=== PATIENT | female | born 1945 | race Caucasian/White ===

== ENCOUNTER 2017-11-22 12:02 | Observation (INO) | payer MEDICARE, OTHER ==
--- NOTE | 2017-11-22 13:19 | RAD ---
CHEST 1 VIEW PORTABLE: HISTORY: A 72-year-old female with a history of chest pain. FINDINGS: Monitor leads overlie the chest. There are some bilateral linear and interstitial parenchymal change s in both lungs including the right mid lung zone and right base and left mid lung zone regions prima rily. Possibilities include that of underlying chronic change versus some acute atypical pneumonia o r pneumonitis. No significant confluent process. Heart size is within the upper range of normal. IMPRESSION: Patchy interstitial and linear parenchymal changes bilaterally, nonspecific, underlying chronic reyes e versus some acute interstitial pneumonitis are felt to be most likely. No confluent pneumonia. Co rrelate clinically. No old studies. Consider short-term followup to include upright PA and lateral c hest whenever the patient can undergo that study. POS: [facility]
[2017-11-22 13:22] LABS: #Eosinphils 0.2 thou/uL (0.0-0.7); #Lymphocytes 1.9 thou/uL (1.20-3.40); #Monocytes 0.3 thou/uL (0.11-0.59); #Neutrophils 3.4 thou/uL (1.40-6.50); %Basophils 0.5 % (0.0-1.0); %Eosinophils 3.7 % (0.0-10.0); %Lymphocytes 33.1 % (21.0-51.0); %Monocytes 5.1 % (0.0-10.0); %Neutrophils 57.6 % (42.0-75.0); Mean Corpuscular HGB CONC 34.8 g/dL (32.0-36.0); Mean Corpuscular Hemoglobin 33.4 pg (27.0-31.0); Mean Corpuscular Volume 96.1 fl (81.0-99.0); Mean Platelet Volume 7.1 fL (7.4-10.4); Platelet Count 215 thou/uL (130-400); RBC Distribution Width 11.4 % (11.5-14.5); Red Blood Cell (RBC) Count 3.59 mill/uL (4.20-5.40); White Blood Cell (WBC) Count 5.8 thou/uL (4.8-10.8)
[2017-11-22 13:45] LABS: ALT (SGPT) 13 U/L (8-55); AST (SGOT) 23 U/L (5-34); Albumin 4.3 g/dL (3.4-4.8); Alkaline Phosphatase 57 U/L (40-150); Anion Gap 12 mmol/L (10-20); BUN (Urea Nitrogen) 13 mg/dL (9.8-20.1); Bilirubin, Total 0.6 mg/dL (0.2-1.2); CK (CPK) 90 U/L (29-168); Calc. Creatinine Clearance 0 mL/min (70-130); Calcium 9.7 mg/dL (7.8-10.44); Carbon Dioxide 24 mmol/L (23-31); Chloride 106 mmol/L (98-107); Estimated GFR-MDRD 76; Globulin 3.5 g/dL (2.4-3.5); Glucose 86 mg/dL (83-110); Potassium 3.9 mmol/L (3.5-5.1); Protein, Total 7.8 g/dL (6.0-8.3); Sodium 138 mmol/L (136-145)
[2017-11-22 13:50] LABS: CKMB 1.3 ng/mL (0-6.6); Troponin I Less than 0.010 ng/mL (< 0.028)
[2017-11-22 17:15] VITALS: BMI 26.3
[2017-11-22 17:31] LABS: Troponin I Less than 0.010 ng/mL (< 0.028)
[2017-11-22 19:42] LABS: Troponin I Less than 0.010 ng/mL (< 0.028)
[2017-11-22] MEDS ORDERED: Ondansetron ODT 4 MG TAB PO PRN (20:37)
[2017-11-22] MEDS ORDERED: Ondansetron HCl/PF 4 MG/2 ML Vial IVP PRN (20:37)
[2017-11-22] MEDS ORDERED: Acetaminophen 500 MG TAB PO PRN (20:37)
[2017-11-22] MEDS ORDERED: ALPRAZolam 0.25 MG TAB PO PRN (20:37)
[2017-11-22] MEDS ORDERED: hydrALAZINE 20 MG/ML VIAL SLOW IVP PRN (20:37)
[2017-11-22] MEDS ORDERED: cloNIDine 0.1 MG TAB PO PRN (20:37)
[2017-11-22] MEDS ORDERED: Ipratropium Bromide 2.5 ml Neb NEB PRN (20:41)
[2017-11-22] MEDS: Famotidine 20 MG TAB PO SCH (21:28)
--- NOTE | 2017-11-23 02:02 | HP ---
DATE OF ADMISSION: 11/22/2017 PRIMARY CARE PHYSICIAN: Ildefonso Jackson MD CHIEF COMPLAINT: Chest pain. HISTORY OF PRESENT ILLNESS: This is a 72-year-old female who initially presented to her [facility] care provider's office, complaining of intermittent chest pain over the last 2-3 months. The p atient states she has recently been diagnosed with a recurrent nodule in the right lung at [facility] in [place], [place] after a previous treatment for left-sided lung cancer with 10 radiation treatments in 08/2016. The patient states on routine CT imaging of the chest. This was noted approx imately 3 days prior to this evaluation. The patient states her physicians at [facility] recommende d cardiac evaluation after she mentioned intermittent chest pain. The patient denies any known coron lopez artery disease and states she underwent cardiac stress testing many years ago and this was interp reted as normal. The patient denies any chronic aspirin therapy, new medications, trauma, injury or change to her activity level. The patient states she normally notices the pain after doing chores at her home causing her to sit down and rest. The patient describes the pain as pressure-like in the c enter of her chest with predilection for this front part of her chest and rib cage. The patient take s intermittent ibuprofen for relief of her symptoms. The patient denies any strong family history of coronary artery disease, recent sick contacts, increased cough, congestion, or fever. The patient p resented to her primary care provider's office undergoing EKG showing questionable T-wave changes in leads V1 and V2. At which point, the patient was referred to the emergency room for evaluation. The patient underwent screening metabolic survey showing negative troponin I and T-wave inversion in thiago ds V1 and V2. The patient received aspirin 324 mg and was referred to the Hospitalist Service for fu rther evaluation. PAST MEDICAL HISTORY: 1. Left-sided lung carcinoma, status post radiation therapy 08/2016. 2. Chronic obstructive pulmonary disease. 3. Former tobacco abuse. 4. Anxiety/depression. PAST SURGICAL HISTORY: 1. Status post cholecystectomy. 2. Status post hysterectomy. CURRENT MEDICATIONS: 1. Xanax 0.25 mg p.o. b.i.d. 2. Spiriva 18 mcg inhaled daily. ALLERGIES: No known drug allergies. FAMILY HISTORY: No inheritable diseases per patient report. SOCIAL HISTORY: Resides in [place], [place]. Retired. Former tobacco use. No alcohol or illicit dr edd use. Accompanied by her daughter in the hospital. Functional of all activities of daily living. REVIEW OF SYSTEMS: The following complete review of systems was negative, unless otherwise mentioned in the HPI or below: Constitutional: Weight loss or gain, ability to conduct usual activities. Sk in: Rash, itching. Eyes: Double vision, pain. ENT/Mouth: Nose bleeding, neck stiffness, pain, te nderness. Cardiovascular: Palpitations, dyspnea on exertion, orthopnea. Respiratory: Shortness of breath, wheezing, cough, hemoptysis, fever or night sweats. Gastrointestinal: Poor appetite, abdom inal pain, heartburn, nausea, vomiting, constipation, or diarrhea. Genitourinary: Urgency, frequenc y, dysuria, nocturia. Musculoskeletal: Pain, swelling. Neurologic/Psychiatric: Anxiety, depressio n. Allergy/Immunologic: Skin rash, bleeding tendency. PHYSICAL EXAMINATION: VITAL SIGNS: On admission, blood pressure 140/70, pulse 60, respiratory rate 18, temperature 97.4 de grees Fahrenheit, O2 saturation 98% on room air. GENERAL APPEARANCE: This is a 72-year-old female, alert and oriented x3, pleasant, convers ant, in no acute distress. HEENT: Pupils are equal, round, and reactive to light and accommodation. Extraocular muscles are in tact. No scleral icterus, no conjunctival injection. Nares patent. OP is clear. Teeth in fair rep air. No oral lesions noted. NECK: Supple. No cervical adenopathy, no thyromegaly, no carotid bruits, no JVD appreciated. Cervi trudy spine with full active and passive range of motion. No meningeal signs appreciated. CHEST: Diminished breath sounds in the bases bilaterally. No rhonchi, wheezing, or crackles. CARDIOVASCULAR: S1, S2 with distant heart sounds. No murmur, rub, or gallop detected. ABDOMEN: Rounded, soft, nontender, nondistended. Bowel sounds are positive in all four quadrants. There is no hepatosplenomegaly, no abdominal bruits, no rebound or guarding appreciated. EXTREMITIES: Warm and dry with fair turgor. No clubbing, cyanosis, or asymmetric edema appreciated. Pulses palpable distally at the dorsalis pedis, posterior tibial, and popliteal arteries bilaterall y. Capillary refill less than 2 seconds. MUSCULOSKELETAL: Positive tenderness to palpation in the lower third of the sternum and costochondra l margin bilaterally. NEUROLOGIC: Cranial nerves II through XII are grossly intact. No focal or lateralizing signs apprec iated. PERTINENT LABORATORY AND X-RAY FINDINGS: A complete metabolic profile within normal limits. Troponi n I negative x3. CBC within normal limits. Portable chest x-ray dated 11/22/2017, showed chronic ch anges in bilateral lung mike with patchy interstitial markings. No acute infiltrate identified. E KG dated 11/22/2017, by my interpretation shows sinus bradycardia with heart rates in the 50s. Denise l R-wave progression noted in the precordial leads. Normal axis. T-wave inversion in leads V1 and V 2. ASSESSMENT AND PLAN: 1. Chest pain. The patient will be observed on the telemetry unit. We will proceed with exercise C ardiolite stress testing in the a.m. Check fasting lipid profile. Continue aspirin 325 mg p.o. cecil y. 2. Chronic obstructive pulmonary disease. Stable currently. No evidence of exacerbation. Resume h ome Spiriva 18 mcg daily. 3. Lung carcinoma, status post radiation therapy in 2017. Current workup involving neoplastic proce ss of the right lung field. 4. Anxiety. Continue Xanax 0.25 mg p.o. b.i.d. 5. Prophylaxis. Sequential compression devices while in bed. Pepcid 20 mg p.o. b.i.d. 6. Code status is FULL. Surrogate medical decision maker is the patient's daughter.
[2017-11-23 04:58] LABS: Eosinophils 7 % (0-10); Hemoglobin 11.6 g/dL (12.0-16.0); Lymphocytes 34 % (21-51); MDiff Complete? YES; Mean Corpuscular HGB CONC 34.8 g/dL (32.0-36.0); Mean Corpuscular Hemoglobin 33.9 pg (27.0-31.0); Mean Corpuscular Volume 97.2 fl (81.0-99.0); Monocytes 2 % (0-10); Neutrophil 55 % (42-75); PLT Morphology Comment Appears Adequate; Platelet Count 206 thou/uL (130-400); RBC Distribution Width 11.4 % (11.5-14.5); Red Blood Cell (RBC) Count 3.44 mill/uL (4.20-5.40); White Blood Cell (WBC) Count 5.7 thou/uL (4.8-10.8)
[2017-11-23 04:59] LABS: Anion Gap 8 mmol/L (10-20); BUN (Urea Nitrogen) 14 mg/dL (9.8-20.1); Calc. Creatinine Clearance 72 mL/min (70-130); Calcium 9.6 mg/dL (7.8-10.44); Carbon Dioxide 26 mmol/L (23-31); Cardiac Risk 4.1 (Less than 4.5); Chloride 108 mmol/L (98-107); Cholesterol 177 mg/dl (< 200 Desired); Estimated GFR-MDRD 81; Glucose 91 mg/dL (83-110); HDL Cholesterol 43 mg/dL (>60 Neg Risk); LDL Cholesterol, Calculated 111 mg/dL; Potassium 3.8 mmol/L (3.5-5.1); Sodium 138 mmol/L (136-145); Triglycerides 115 mg/dL (Less than 150)
[2017-11-23] MEDS ORDERED: Aspirin 325 MG TAB PO SCH (09:00)
[2017-11-23] MEDS ORDERED: Spiriva 18 MCG CAP (Box of 5 Caps) INH SCH (09:00)
[2017-11-23 12:10] VITALS: BP 145/67; TEMP 97.3
[2017-11-23] MEDS: Famotidine 20 MG TAB PO SCH (13:13)
--- NOTE | 2017-11-23 13:34 | DIS ---
DATE OF ADMISSION: 11/22/2017 DATE OF DISCHARGE: 11/23/2017 DISCHARGE DIAGNOSES: 1. Chest pain, non-cardiac. 2. Chronic obstructive pulmonary disease without exacerbation, stable. 3. Lung carcinoma, status post radiation therapy in 2017. 4. Anxiety, stable. CONSULTATIONS: None. PERTINENT LABORATORY AND X-RAY FINDINGS: Complete metabolic profile within normal limits. Total cho lesterol 177, triglycerides 115, HDL 43, LDL 111. Troponin negative x3. CBC showed a white blood ce ll count of 5.7, hemoglobin 12, hematocrit 33, platelet count 206. Portable chest x-ray dated 2017 showed chronic changes in bilateral lung mike. Cardiolite stress test dated 11/23/2017 showed no evidence for reversible or fixed ischemia with calculated ejection fraction of 71%. HOSPITAL COURSE: The patient was observed on the telemetry unit after initially presenting with ches t pain with questionable EKG changes. The patient underwent serial cardiac enzymes which were negati ve x3. The patient proceeded to exercise Cardiolite stress testing using Lexiscan protocol showing n o evidence of reversible or fixed ischemia with calculated ejection fraction 71%. Telemetry monitori ng showed a sinus mechanism without evidence of acute arrhythmia or dysrhythmia. Screening metabolic survey was negative. The patient overall remained clinically stable throughout the hospital course and likely is chest pain related to musculoskeletal origin. I have examined the patient at the time of discharge and discussed current radiologic studies, stress test results and metabolic survey at wh ich point the patient verbalized understanding and agreement. The patient is overall clinically stab le and ready for discharge on 11/23/2017. DISCHARGE MEDICATIONS: 1. Xanax 0.25 mg p.o. b.i.d. 2. Spiriva HandiHaler 18 mcg inhaled daily. FOLLOWUP: The patient may follow up with Dr. Ildefonso Jackson within 7 days of discharge. CONDITION ON DISCHARGE: Stable. ACTIVITY: ad av. DIET: Regular. CODE STATUS: Full. DISPOSITION: Home on 11/23/2017.
--- NOTE | 2017-11-23 13:56 | NM ---
MYOCARDIAL PERFUSION EVALUATION. INDICATIONS: Asthma with moderate to severe COPD and chest pain. RADIOPHARMACEUTICAL: Technetium 99m sestamibi 32 millicuries IV with stress. Technetium 99m sestamibi 10.8 millicuries with rest. FINDINGS: When comparing the stress and rest images, no reversible myocardial perfusion defect is evident. The re is normal wall motion and thickening. Estimated LVEF is 71%. IMPRESSION: Normal myocardial perfusion evaluation. POS: [facility]
[2017-11-23] MEDS ORDERED: Regadenoson 0.4 MG/5 ML SYRINGE ONE (15:42)
== END 2017-11-23 13:59 | disposition home or self-care (01) ==
LOC: ERS 12:02 → 2SW 14:27
PROVIDERS: ADMIT Family Medicine; ATTEND Family Medicine
DX: R07.89 Other chest pain (principal); J44.9 Chronic obstructive pulmonary disease, unspecified; F41.9 Anxiety disorder, unspecified; F32.9 Major depressive disorder, single episode, unspecified; Z79.899 Other long term (current) drug therapy; Z90.49 Acquired absence of other specified parts of digestive tract; Z90.710 Acquired absence of both cervix and uterus; Z85.118 Personal history of other malignant neoplasm of bronchus and lung; Z92.3 Personal history of irradiation; Z87.891 Personal history of nicotine dependence
CPT/HCPCS: 71045; 78452; 80048; 80053; 80061; 82550; 82553; 84484 ×2; 85007; 85025; 85027; 93005; 93017; 99285; A9500; G0378; 36415; J2785

== ENCOUNTER 2018-02-22 12:26 | Emergency (ER) | payer MEDICARE ==
[2018-02-22 13:08] LABS: Hemoglobin 12.4 g/dL (12.0-16.0); Mean Corpuscular HGB CONC 35.1 g/dL (32.0-36.0); Mean Corpuscular Hemoglobin 33.7 pg (27.0-31.0); Mean Corpuscular Volume 96.2 fL (78.0-98.0); Mean Platelet Volume 7.3 fL (7.4-10.4); Platelet Count 130 thou/uL (130-400); RBC Distribution Width 11.3 % (11.5-14.5); Red Blood Cell (RBC) Count 3.67 mill/uL (4.20-5.40); White Blood Cell (WBC) Count 3.5 thou/uL (4.8-10.8)
[2018-02-22 13:22] LABS: ALT (SGPT) 10 U/L (8-55); AST (SGOT) 13 U/L (5-34); Albumin 4.1 g/dL (3.4-4.8); Alkaline Phosphatase 81 U/L (40-150); Anion Gap 10 mmol/L (10-20); BUN (Urea Nitrogen) 22 mg/dL (9.8-20.1); Bilirubin, Total 1.4 mg/dL (0.2-1.2); Calc. Creatinine Clearance 0 mL/min (70-130); Calcium 9.7 mg/dL (7.8-10.44); Carbon Dioxide 27 mmol/L (23-31); Chloride 102 mmol/L (98-107); Estimated GFR-MDRD 71; Glucose 123 mg/dL (83-110); Potassium 3.8 mmol/L (3.5-5.1); Protein, Total 7.1 g/dL (6.0-8.3); Sodium 135 mmol/L (136-145)
[2018-02-22 13:44] LABS: Band 6 % (5-11); Eosinophils 1 % (0-10); Lymphocytes 32 % (21-51); MDiff Complete? YES; Monocytes 4 % (0-10); Neutrophil 57 % (42-75); PLT Morphology Comment Appears Adequate
[2018-02-22 13:50] LABS: Magnesium 2.5 mg/dL (1.6-2.6)
[2018-02-22 13:54] LABS: CKMB 0.4 ng/mL (0-6.6); Troponin I Less than 0.010 ng/mL (< 0.028)
--- NOTE | 2018-02-22 14:07 | RAD ---
CHEST 1 VIEW: Date: 02/22/18 HISTORY: Altered mental status. Chest pain. COMPARISON: Chest radiograph dated 11/22/17. FINDINGS: Heart size is enlarged. There is scarring in the lingula and left lower lobe. Small scarring right lo wer lobe. No pneumothorax. Peripheral scar is present right upper lobe. No acute osseous abnormality. Right upper quadrant surgical clips. IMPRESSION: Chronic changes. No acute intrathoracic abnormality. POS: [facility]
[2018-02-22 14:35] LABS: Bilirubin Negative (Negative); Blood, Urine Small (Negative); Clarity CLOUDY (Clear); Glucose, Urine (Dipstick) Negative (Negative); Leukocyte Large (Negative); Nitrite Negative (Negative); Protein, Urine (Dipstick) Negative (Neg-Trace); Specific Gravity, Urine 1.009 (1.002-1.036); Urobilinogen 0.2 mg/dL (0.2-1.0)
[2018-02-22 14:37] LABS: Bacteria/HPF 4+ HPF (None Seen); Hyaline Casts/LPF 0-3 HYALINE CAST LPF (0-3 Hyaline); RBC/HPF 0-3 HPF (0-3); Squamous Epithelial 0-3 HPF (0-3)
[2018-02-22] MEDS ORDERED: cefTRIAXone\\ROCEPHIN 2 GM VIAL ONE (15:08)
== END 2018-02-22 16:31 | disposition home or self-care (01) ==
LOC: ERS 12:26
DX: N39.0 Urinary tract infection, site not specified (principal); R53.1 Weakness; J44.9 Chronic obstructive pulmonary disease, unspecified; F32.9 Major depressive disorder, single episode, unspecified; Z87.891 Personal history of nicotine dependence
CPT/HCPCS: 71045; 80053; 81003; 81015; 82553; 83735; 84484; 85025; 87077; 87086; 87186; 93005; 96365; J0696

== ENCOUNTER 2018-04-04 11:54 | Emergency (ER) | payer MEDICARE ==
[2018-04-04 13:23] LABS: Hemoglobin 10.9 g/dL (12.0-16.0); Mean Corpuscular HGB CONC 35.2 g/dL (32.0-36.0); Mean Corpuscular Hemoglobin 34.8 pg (27.0-31.0); Mean Corpuscular Volume 98.8 fL (78.0-98.0); Mean Platelet Volume 6.7 fL (7.4-10.4); Platelet Count 320 thou/uL (130-400); Red Blood Cell (RBC) Count 3.15 mill/uL (4.20-5.40); White Blood Cell (WBC) Count 31.5 thou/uL (4.8-10.8)
[2018-04-04 13:39] LABS: ALT (SGPT) 8 U/L (8-55); AST (SGOT) 16 U/L (5-34); Alkaline Phosphatase 131 U/L (40-150); Anion Gap 12 mmol/L (10-20); BUN (Urea Nitrogen) 30 mg/dL (9.8-20.1); Bilirubin, Total 1.4 mg/dL (0.2-1.2); Calc. Creatinine Clearance 0 mL/min (70-130); Calcium 9.4 mg/dL (7.8-10.44); Carbon Dioxide 23 mmol/L (23-31); Chloride 102 mmol/L (98-107); Estimated GFR-MDRD 81; Globulin 3.1 g/dL (2.4-3.5); Glucose 106 mg/dL (83-110); Potassium 4.3 mmol/L (3.5-5.1); Protein, Total 7.1 g/dL (6.0-8.3); Sodium 133 mmol/L (136-145)
[2018-04-04 13:42] LABS: Band 17 % (5-11); Lymphocytes 1 % (21-51); MDiff Complete? YES; Monocytes 2 % (0-10); Neutrophil 80 % (42-75); PLT Morphology Comment Appears Adequate; Toxic Granulation SLIGHT
--- NOTE | 2018-04-04 13:58 | RAD ---
CHEST 1 VIEW: Date: 04/04/18 HISTORY: Chest pain. COMPARISON: Chest radiograph dated 02/22/18. FINDINGS: Chronic interstitial markings in the lung bases, likely scarring. No pneumothorax. Heart size mildly enlarged. No acute osseous abnormality. Right upper quadrant surgical clips. IMPRESSION: Chronic changes. No acute intrathoracic abnormality. POS: [facility]
[2018-04-04 15:00] LABS: Bilirubin Negative (Negative); Blood, Urine Trace (Negative); Clarity CLOUDY (Clear); Glucose, Urine (Dipstick) Negative (Negative); Leukocyte Moderate (Negative); Nitrite Positive (Negative); Protein, Urine (Dipstick) Negative (Neg-Trace); Specific Gravity, Urine 1.014 (1.002-1.036)
[2018-04-04 15:02] LABS: Bacteria/HPF 4+ HPF (None Seen); Hyaline Casts/LPF 4-6 HYALINE CAST LPF (0-3 Hyaline); Pathc Cast-AUWi Flag 0.43 (0-2.49); Squamous Epithelial 0-3 HPF (0-3)
[2018-04-04] MEDS ORDERED: cefTRIAXone\\ROCEPHIN 1 GM VIAL ONE (15:51)
== END 2018-04-04 17:40 | disposition home or self-care (01) ==
LOC: ERS 11:54
DX: N39.0 Urinary tract infection, site not specified (principal); E86.0 Dehydration; J44.9 Chronic obstructive pulmonary disease, unspecified; F32.9 Major depressive disorder, single episode, unspecified; F17.210 Nicotine dependence, cigarettes, uncomplicated
CPT/HCPCS: 36415; 71045; 80053; 81003; 81015; 83605; 85025; 87040; 87077; 87086; 87186; 96361; 96365; J0696

== ENCOUNTER 2018-07-23 10:52 | Observation (INO) | payer MEDICARE ==
[2018-07-23] MEDS ORDERED: Ondansetron PF 4 MG/2 ML Vial ONE (11:43)
[2018-07-23 12:14] LABS: #Eosinphils 0.1 thou/uL (0.0-0.7); #Lymphocytes 1.2 thou/uL (1.20-3.40); #Monocytes 0.4 thou/uL (0.11-0.59); #Neutrophils 4.4 thou/uL (1.40-6.50); %Basophils 0.6 % (0.0-1.0); %Eosinophils 1.3 % (0.0-10.0); %Lymphocytes 19.7 % (21.0-51.0); %Neutrophils 71.4 % (42.0-75.0); Hemoglobin 10.8 g/dL (12.0-16.0); Mean Corpuscular Hemoglobin 31.2 pg (27.0-31.0); Mean Corpuscular Volume 94.4 fL (78.0-98.0); Mean Platelet Volume 7.3 fL (7.4-10.4); Platelet Count 271 thou/uL (130-400); RBC Distribution Width 11.4 % (11.5-14.5); Red Blood Cell (RBC) Count 3.46 mill/uL (4.20-5.40); White Blood Cell (WBC) Count 6.2 thou/uL (4.8-10.8)
[2018-07-23 12:29] LABS: ALT (SGPT) Less than 7 U/L (8-55); AST (SGOT) 18 U/L (5-34); Alkaline Phosphatase 41 U/L (40-150); Anion Gap 12 mmol/L (10-20); BUN (Urea Nitrogen) 12 mg/dL (9.8-20.1); Bilirubin, Total 0.9 mg/dL (0.2-1.2); Calc. Creatinine Clearance 0 mL/min (70-130); Carbon Dioxide 23 mmol/L (23-31); Chloride 100 mmol/L (98-107); Estimated GFR-MDRD 69; Globulin 3.5 g/dL (2.4-3.5); Glucose 106 mg/dL (83-110); Lipase 36 U/L (8-78); Potassium 4.1 mmol/L (3.5-5.1); Protein, Total 7.5 g/dL (6.0-8.3); Sodium 131 mmol/L (136-145)
[2018-07-23 13:18] LABS: Bilirubin Negative (Negative); Blood, Urine Negative (Negative); Clarity CLEAR (Clear); Glucose, Urine (Dipstick) Negative (Negative); Leukocyte Small (Negative); Nitrite Negative (Negative); Protein, Urine (Dipstick) Negative (Neg-Trace); Specific Gravity, Urine 1.017 (1.002-1.036); Urobilinogen 0.2 mg/dL (0.2-1.0); pH, Urine 5.5 (5.0-9.0)
[2018-07-23 13:20] LABS: Pathc Cast-AUWi Flag 2.32 (0-2.49)
--- NOTE | 2018-07-23 13:25 | CT ---
CT ABDOMEN AND PELVIS WITH IV CONTRAST: Date: 07/23/18 HISTORY: Abdominal pain. Lung cancer. COPD. Nausea and vomiting. Frequent UTIs. FINDINGS: There are no previous exams for comparison. There are atherosclerotic changes in the visualized lung mike. The patient is post cholecystectomy. A tiny, nonobstructing right renal calculus is present. There is a small cyst in the superior pole o f the right kidney. The liver demonstrates decreased attenuation compared to the spleen consistent wi th fatty infiltration. The pancreas, adrenal glands, and left kidney are unremarkable. A circumaortic left renal vein is present. A tiny low density lesion in the left lobe of the liver is likely a cyst and was seen on the CT scan of chest dated 11/23/10 from [facility]. No free air, free fluid, or lymphadenopathy is seen. There are vascular calcifications without eviden ce of aneurysmal dilatation of the abdominal aorta. The small bowel loops are not abnormally dilated. There are degenerative changes in the spine. IMPRESSION: No acute process. POS: [facility]
[2018-07-23 13:45] LABS: RBC/HPF None Seen HPF (0-3); Squamous Epithelial 0-3 HPF (0-3)
[2018-07-23 13:47] LABS: Bacteria/HPF None Seen HPF (None Seen); Hyaline Casts/LPF NONE SEEN LPF (0-3 Hyaline)
[2018-07-23] MEDS ORDERED: cefTRIAXone\\ROCEPHIN 1 GM VIAL ONE (14:25)
[2018-07-23] MEDS ORDERED: Sodium Chloride 0.9% 100 ML ONE (14:25)
[2018-07-23] MEDS ORDERED: Ondansetron PF 4 MG/2 ML Vial IVP PRN (16:22)
[2018-07-23] MEDS ORDERED: Ondansetron ODT 4 MG TAB PO PRN (16:22)
[2018-07-23 16:55] VITALS: BMI 22.1
[2018-07-23] MEDS: Sodium Chloride 0.9% 1,000 ML IV SCH (17:51)
[2018-07-23] MEDS: Famotidine 20 MG TAB PO SCH (20:24)
[2018-07-23] MEDS ORDERED: Sodium Chloride 0.9% 250 ML 250 ML IVPB SCH (21:45)
[2018-07-23] MEDS ORDERED: Sodium Chloride 0.9% 250 ML IV SCH (21:45)
--- NOTE | 2018-07-23 23:05 | HP ---
PRIMARY CARE PHYSICIAN: Dr. Ramirez. CHIEF COMPLAINT: Vomiting. HISTORY OF PRESENT ILLNESS: Ms. 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 Last treatment was in June. Reports that she has been to [facility] within the last 2 weeks and had a torso and brain CT, which was clean. Daughter reports that she called to check on her today and went over to her house and noticed that there were several bouts of bile. This concerned her and she brought her to the emergency room. The patient denies any abdominal pain and denies any current nausea after she was given some IV fluids, Rocephin and Zofran in the emergency room. The patient did have a CT of the abdomen and pelvis while she was in the ER, it showed no acute process. Daughter reports that she is worried about her because she has not been eating. The patient reports that her taste buds are not the same after her chemotherapy and radiation, nothing tastes good, and she has been drinking Dr Pepper and water, but has eaten very little in the last few days and then vomiting started 3 days ago, reports vomited 3 times 2 days ago, yesterday once or twice, and then today once or twice. Reports she is currently on cefdinir for a sinus infection. Does have a past medical history of COPD and is on twice a day. While in the emergency room, she had some leukocyte esterase and some white blood cells in her urine and was treated with Rocephin IV piggyback. It was sent off for culture. Based on history and not being able to keep anything down, she was admitted to the observation unit for further management. PAST MEDICAL HISTORY: Includes small cell lung cancer, which is currently in remission and COPD. PAST SURGICAL HISTORY: Includes cholecystectomy, hysterectomy, and several biopsies of her lungs. PSYCHIATRIC HISTORY: Does have a history of depression. SOCIAL HISTORY: Former tobacco user, smokes cigarettes. She quit smoking less than 10 years ago. Denies any alcohol or drug use. ALLERGIES: INCLUDE CODEINE. CURRENT MEDICATIONS: Include; 1. Cefdinir 300 mg two times a day. 2. two puffs once a day. REVIEW OF SYSTEMS: The patient reports generalized weakness and deconditioning. Reported some nausea and vomiting for the last 3 days, currently reports improvement. States oral intake has been significantly decreased within last 4 to 5 days. All other review of systems have been reviewed and negative unless mentioned in the HPI. PHYSICAL EXAMINATION: VITAL SIGNS: Blood pressure 108/68, pulse is 60, respirations 22, temperature is 98.4, and pulse ox is 99% on room air. CONSTITUTIONAL: The patient is in no acute distress. She is alert, oriented to person, place, and time. HEAD: Atraumatic, normocephalic. EYES: Eyelids normal to inspection. Pupils are equally round and reactive to light. Extraocular muscles are intact. ENT: Mucous membranes are dry. Teeth are normal. Denies sinus tenderness on palpation. NECK: Trachea is midline. No cervical adenopathy. No tenderness. Full range of motion. RESPIRATORY/CHEST: Breath sounds are clear. CARDIOVASCULAR: Regular rate and rhythm. S1, S2. Heart sounds are normal. ABDOMEN: Female, nontender on palpation. Bowel sounds are heard. No peritoneal signs. BACK: Normal to inspection. Normal range of motion. No tenderness. EXTREMITIES: Upper extremities, normal range of motion. Motor strength is normal. Sensation is intact. Radial pulses are equal bilaterally. Lower extremities; normal to inspection. Normal range of motion. Motor strength is normal. Sensation is intact bilaterally. Pedal pulses are equal bilaterally. NEUROLOGIC: Cranial nerves are intact. No focal, motor, or sensory deficits. Speech is normal. The patient is oriented to person, place, and time. SKIN: Warm, dry, normal in color. PSYCHIATRIC: The patient has a flat affect. IMAGING STUDIES: EKG interpretation in the ER, normal sinus rhythm, beats per minute were 63, no ectopics. Conduction is normal. ST segments are normal. PERTINENT LABORATORY DATA: White blood cell count is 6.2, hemoglobin is 10.8, hematocrit is 32.6, and platelet count is 271. Sodium was 131, creatinine 0.82, estimated GFR 69, BUN is 12, glucose is 106. AST 18, ALT less than 7, and alkaline phosphatase is 41. Troponin I is undetectable. Other liver enzymes are unremarkable. Lipase is 36. Urine positive for leukocyte esterase and white blood cell count of 4 to 6. ASSESSMENT AND PLAN: 1. Nausea and vomiting. We will gently hydrate, offer IV fluids. We will check labs in the morning. 2. Deconditioning, decreased appetite. We will offer meal supplementation, high-protein boost or other similar supplements. We will ask dietitian's further input. 3. Urinary tract infection. We will continue the Rocephin IV piggyback. 4. Chronic obstructive pulmonary disease. We will continue her home medications. 5. Deep venous thrombosis and gastrointestinal prophylaxis will be started. 6. Hospital course will depend on clinical findings. Job ID: [id number]
[2018-07-23] MEDS ORDERED: Sodium Chloride 0.9% 250 ML 250 ML IV SCH (23:45)
[2018-07-24] MEDS ORDERED: Sodium Chloride 0.9% 250 ML IV SCH (00:15)
[2018-07-24] MEDS: Sodium Chloride 0.9% 1,000 ML IV SCH ×3 (01:25→17:41)
[2018-07-24 04:59] LABS: #Eosinphils 0.2 thou/uL (0.0-0.7); #Monocytes 0.3 thou/uL (0.11-0.59); #Neutrophils 3.3 thou/uL (1.40-6.50); %Basophils 0.1 % (0.0-1.0); %Eosinophils 3.8 % (0.0-10.0); %Lymphocytes 21.5 % (21.0-51.0); %Monocytes 5.6 % (0.0-10.0); %Neutrophils 68.9 % (42.0-75.0); Hemoglobin 9.3 g/dL (12.0-16.0); Mean Corpuscular HGB CONC 34.7 g/dL (32.0-36.0); Mean Corpuscular Hemoglobin 33.1 pg (27.0-31.0); Mean Corpuscular Volume 95.3 fL (78.0-98.0); Mean Platelet Volume 6.8 fL (7.4-10.4); Platelet Count 217 thou/uL (130-400); RBC Distribution Width 11.5 % (11.5-14.5); White Blood Cell (WBC) Count 4.8 thou/uL (4.8-10.8)
[2018-07-24 05:21] LABS: ALT (SGPT) Less than 7 U/L (8-55); AST (SGOT) 14 U/L (5-34); Albumin 3.1 g/dL (3.4-4.8); Alkaline Phosphatase 33 U/L (40-150); Anion Gap 7 mmol/L (10-20); BUN (Urea Nitrogen) 11 mg/dL (9.8-20.1); Bilirubin, Total 0.5 mg/dL (0.2-1.2); Calc. Creatinine Clearance 69 mL/min (70-130); Calcium 8.5 mg/dL (7.8-10.44); Carbon Dioxide 25 mmol/L (23-31); Chloride 105 mmol/L (98-107); Estimated GFR-MDRD 88; Globulin 2.6 g/dL (2.4-3.5); Glucose 93 mg/dL (83-110); Potassium 3.8 mmol/L (3.5-5.1); Protein, Total 5.7 g/dL (6.0-8.3); Sodium 133 mmol/L (136-145)
[2018-07-24] MEDS: Famotidine 20 MG TAB PO SCH ×2 (10:24→20:50)
[2018-07-24] MEDS: Enoxaparin Sodium 30 MG/0.3 ML SYRINGE SC SCH (10:24)
[2018-07-24] MEDS ORDERED: Sodium Chloride 0.9% 500 ML IV SCH (12:45)
--- NOTE | 2018-07-24 14:15 | EKG ---
Test Reason : VOMITING Blood Pressure : / mmHG Vent. Rate : 063 BPM Atrial Rate : 063 BPM P-R Int : 158 ms QRS Dur : 090 ms QT Int : 404 ms P-R-T Axes : 061 -22 022 degrees QTc Int : 413 ms Normal sinus rhythm T wave abnormality, consider anterolateral ischemia Abnormal ECG Confirmed by JV MCCLENDON DO ([id number]), story editor JASMINE GIVENS ([id number]) on 07/24/2018 2:14:48 PM Referred By: Confirmed By:JV MCCLENDON DO
[2018-07-24] MEDS: cefTRIAXone\\ROCEPHIN 1 GM in Sodium Chloride 0.9% 100 ML IVPB SCH (15:12)
--- NOTE | 2018-07-24 15:33 | PDOC.PN ---
- Subjective Encounter Start Date: 07/24/18 Encounter Start Time: 09:30 Subjective: Denies n/v in the last 24 hours -: Denies abdominal pain, reports she has been eating "a little" -: Reports grief over of in February - Objective Vital Signs & Weight: Vital Signs (12 hours) Temp Pulse Resp BP BP Pulse Ox 07/24/18 13:30 79 16 86/52 L 07/24/18 11:41 98.4 F 76 16 86/52 L 93 L 07/24/18 07:50 98.3 F 64 18 94/54 L 94 L 07/24/18 04:00 99.1 F 63 20 92/53 L 93 L Weight Admit Weight 56.88 kg Weight 56.88 kg I&O: 07/23/18 07/24/18 07/25/18 06:59 06:59 06:59 Intake Total 3357 1278 Output Total 500 500 Balance 2856 778 Result Diagrams: 07/24/18 04:33 07/24/18 04:33 Phys Exam - Physical Examination HEENT: PERRLA, moist MMs Neck: no nodes, no JVD Respiratory: no wheezing, clear to auscultation bilateral Cardiovascular: RRR, no significant murmur Gastrointestinal: soft, non-tender Musculoskeletal: no edema, pulses present Neurological: non-focal, normal sensation Lymphatic: no nodes Deviation from normal: flat affect Skin: no rash, normal turgor Dx/Plan (1) Hypotension Status: Acute (2) Nausea & vomiting Code(s): R11.2 - NAUSEA WITH VOMITING, UNSPECIFIED Status: Acute (3) UTI (urinary tract infection) Status: Acute - Plan cont current plan of care, continue antibiotics, DVT proph w/lovenox -: CM consulted for possible home health -: Nutrition recommended supplements TID -: Unable to walk very far, feels weak, PT ordered -: Will monitor VS and labs * .
[2018-07-24] MEDS ORDERED: Megestrol Acetate 40 MG TAB PO SCH (21:00)
[2018-07-24] MEDS: Megestrol Acetate 800 MG/20 ML UDCUP PO SCH (21:07)
[2018-07-24] MEDS ORDERED: Acetaminophen 325 MG TAB PO PRN (22:16)
[2018-07-25] MEDS: Sodium Chloride 0.9% 1,000 ML IV SCH ×2 (01:51→10:44)
[2018-07-25] MEDS ORDERED: Sodium Chloride 0.9% 250 ML 250 ML IVPB SCH (03:15)
[2018-07-25] MEDS ORDERED: Sodium Chloride 0.9% 250 ML IVPB SCH (03:30)
[2018-07-25 06:23] LABS: #Eosinphils 0.2 thou/uL (0.0-0.7); #Lymphocytes 1.1 thou/uL (1.20-3.40); #Monocytes 0.3 thou/uL (0.11-0.59); #Neutrophils 2.6 thou/uL (1.40-6.50); %Basophils 0.5 % (0.0-1.0); %Eosinophils 4.2 % (0.0-10.0); %Lymphocytes 25.4 % (21.0-51.0); %Monocytes 7.9 % (0.0-10.0); Hemoglobin 9.5 g/dL (12.0-16.0); Mean Corpuscular HGB CONC 34.6 g/dL (32.0-36.0); Mean Corpuscular Volume 95.5 fL (78.0-98.0); Mean Platelet Volume 6.8 fL (7.4-10.4); Platelet Count 216 thou/uL (130-400); RBC Distribution Width 11.5 % (11.5-14.5); Red Blood Cell (RBC) Count 2.86 mill/uL (4.20-5.40); White Blood Cell (WBC) Count 4.2 thou/uL (4.8-10.8)
[2018-07-25 06:44] LABS: ALT (SGPT) Less than 7 U/L (8-55); AST (SGOT) 12 U/L (5-34); Albumin 3.1 g/dL (3.4-4.8); Alkaline Phosphatase 32 U/L (40-150); Anion Gap 9 mmol/L (10-20); BUN (Urea Nitrogen) 6 mg/dL (9.8-20.1); Bilirubin, Total 0.4 mg/dL (0.2-1.2); Calc. Creatinine Clearance 75 mL/min (70-130); Calcium 8.6 mg/dL (7.8-10.44); Carbon Dioxide 22 mmol/L (23-31); Chloride 112 mmol/L (98-107); Estimated GFR-MDRD Greater than 90; Globulin 2.7 g/dL (2.4-3.5); Glucose 111 mg/dL (83-110); Potassium 3.7 mmol/L (3.5-5.1); Protein, Total 5.8 g/dL (6.0-8.3); Sodium 139 mmol/L (136-145)
[2018-07-25] MEDS: Enoxaparin Sodium 30 MG/0.3 ML SYRINGE SC SCH (09:44)
[2018-07-25] MEDS: Megestrol Acetate 800 MG/20 ML UDCUP PO SCH (09:45)
[2018-07-25] MEDS: Famotidine 20 MG TAB PO SCH (09:45)
[2018-07-25] MEDS: cefTRIAXone\\ROCEPHIN 1 GM in Sodium Chloride 0.9% 100 ML IVPB SCH (14:46)
[2018-07-25 15:47] VITALS: BP 107/57; TEMP 99.2
--- NOTE | 2018-07-26 13:22 | DIS ---
DATE OF ADMISSION: 07/23/2018 DATE OF DISCHARGE: 07/25/2018 PRIMARY CARE PHYSICIAN: Dr. Ramirez. CONSULTANTS: None. PROCEDURE: The patient had an abdomen and pelvis CT that showed no acute process. HOSPITAL COURSE: The patient was admitted on 07/23/2018 for nausea, vomiting, evidence of possible UTI in her urine specimen, deconditioning, decreased appetite, nausea, vomiting for the last week. Daughter reported that she had not eaten much in the last week. The patient does have a recent history of small cell lung cancer, which had been treated with radiation and chemo. Her last treatment was in June, reports that [facility] in last 2 weeks and had [address]s, which were clean. Daughter went to check on the patient on day of admission, noticed that she had vomited several times, grew concerned with her vomiting and generalized weakness and brought her to the emergency room for further evaluation. While patient has been admitted, she has received Rocephin IV piggyback, fluids, we added Megace and some Zoloft to her medication regimen. We asked for Palliative Care to consult for assistance with goals of care and to help with any family issues they might be dealing with as the patient's in February and then subsequently, she was diagnosed with cancer and has been undergoing treatment. A significant component of grieving, and has not been able to process while she has been undergoing her own health crisis. Was amenable to starting some antidepressant therapy and we will have her follow up with her primary care physician Dr. Ramirez, who started her on a low dose and she may need an increased dose. We will need to monitor her sodium as it was on the lower side of normal while in the hospital. The patient's vital signs improved, blood pressure morning of admission 107/57. The patient's physical stamina has improved. On day of admission, she was unable to walk very far without assistance. Today, on the day of discharge, she was walking up and down the halls without assistance. Generally feels better today. Reports that she wants to get discharged pancakes, which is the first time she has expressed interest in eating since she has been here. Subsequently, the patient will be discharged to home with close followup with Dr. Ramirez. DISCHARGE DIAGNOSES: 1. Nausea and vomiting, resolved. 2. Urinary tract infection, resolved. 3. Deconditioning, improved. 4. Chronic obstructive pulmonary disease. 5. Decreased appetite. 6. Melancholy - grieving. REVIEW OF SYSTEMS: The patient denies any abdomen pain, any nausea, vomiting while she has been admitted. Denies any dysuria or increased frequency. Denies any fever, chills, trouble with ambulation. All other systems were reviewed and are negative unless mentioned in the hospital course. PHYSICAL EXAMINATION: VITAL SIGNS: Temperature 97.5, pulse is 59, respirations are 16, pulse ox is 94% on room air, and blood pressure 107/57. CONSTITUTIONAL: The patient appears nontoxic, in no distress. HEENT: Head; atraumatic and normocephalic. Eyes; pupils are equally round and reactive to light. Extraocular muscles are intact. ENT; mouth exam is normal. Mucous membranes are moist. NECK: Normal range of motion. Trachea is midline. RESPIRATORY: Chest, breath sounds are clear. No findings of respiratory distress. CARDIOVASCULAR: Regular rate and rhythm. Heart sounds are normal. ABDOMEN: Female. Nontender. Bowel sounds are heard. No peritoneal signs. BACK: Normal inspection. Normal range of motion. No tenderness. EXTREMITIES: Upper extremities; normal inspection. Motor strength is normal. Radial pulses are normal. Lower extremities; inspection is normal. Range of motion is normal. Sensation is intact. Pedal pulses are normal bilaterally. NEUROLOGIC: The patient is alert and oriented. Cranial nerves grossly intact. No focal motor or sensory defects. SKIN: Warm, dry, normal in color. PSYCHIATRIC: She has normal affect. HOME MEDICATIONS: The patient will be continued on 1. Spiriva one inhalation daily. 2. We will add Megace 400 mg p.o. b.i.d. 3. Zoloft 50 mg p.o. daily. ALLERGIES: CODEINE. CONDITION: The patient's condition is stable. DISPOSITION: The patient will be discharged to home. FOLLOWUP: The patient should follow up with Dr. Ramirez within the next week. Physical Therapy as an outpatient order has been written. Job ID: [id number]
== END 2018-07-25 17:00 | disposition home or self-care (01) ==
LOC: ERS 10:52 → 2SW 15:00
PROVIDERS: ADMIT Family Medicine; ATTEND Family Medicine
DX: R11.2 Nausea with vomiting, unspecified (principal); N39.0 Urinary tract infection, site not specified; J44.9 Chronic obstructive pulmonary disease, unspecified; I95.9 Hypotension, unspecified; Z85.118 Personal history of other malignant neoplasm of bronchus and lung; Z92.21 Personal history of antineoplastic chemotherapy; Z92.3 Personal history of irradiation; Z87.891 Personal history of nicotine dependence; Z79.899 Other long term (current) drug therapy; Z88.5 Allergy status to narcotic agent
CPT/HCPCS: 51701; 74177; 80053 ×3; 83690; 84134; 84484; 85025 ×3; 87086; 93005; 96361 ×4; 96365; 96366 ×2; 96372 ×2; 96375; 97139 ×3; 99285; G0378 ×2; G8978; G8979; G8980; 36415; 81003; 81015; A4353; J0696; J1650; J2405; J7050; S0179

== ENCOUNTER 2018-09-17 16:09 | Emergency (ER) | payer MEDICARE ==
[~2018-09-17 16:09] MED LIST: ISOVUE-370 76%-LOCM 1 ML ONE
[2018-09-17 17:11] LABS: #Eosinphils 0.2 thou/uL (0.0-0.7); #Lymphocytes 1.4 thou/uL (1.20-3.40); #Monocytes 0.4 thou/uL (0.11-0.59); #Neutrophils 3.3 thou/uL (1.40-6.50); %Basophils 0.1 % (0.0-1.0); %Eosinophils 3.1 % (0.0-10.0); %Monocytes 6.9 % (0.0-10.0); %Neutrophils 62.8 % (42.0-75.0); Hemoglobin 10.4 g/dL (12.0-16.0); Mean Corpuscular HGB CONC 33.5 g/dL (32.0-36.0); Mean Corpuscular Hemoglobin 32.9 pg (27.0-31.0); Mean Corpuscular Volume 98.3 fL (78.0-98.0); Mean Platelet Volume 6.8 fL (7.4-10.4); Platelet Count 246 thou/uL (130-400); RBC Distribution Width 12.6 % (11.5-14.5); Red Blood Cell (RBC) Count 3.15 mill/uL (4.20-5.40); White Blood Cell (WBC) Count 5.3 thou/uL (4.8-10.8)
[2018-09-17] MEDS ORDERED: cefTRIAXone\\ROCEPHIN 1 GM VIAL ONE (17:21)
[2018-09-17] MEDS ORDERED: Ondansetron PF 4 MG/2 ML Vial ONE (17:21)
[2018-09-17 17:31] LABS: ALT (SGPT) 7 U/L (8-55); AST (SGOT) 17 U/L (5-34); Albumin 4.3 g/dL (3.4-4.8); Alkaline Phosphatase 39 U/L (40-150); Anion Gap 12 mmol/L (10-20); BUN (Urea Nitrogen) 18 mg/dL (9.8-20.1); Bilirubin, Total 0.6 mg/dL (0.2-1.2); Calc. Creatinine Clearance 0 mL/min (70-130); Calcium 10.6 mg/dL (7.8-10.44); Carbon Dioxide 23 mmol/L (23-31); Chloride 103 mmol/L (98-107); Estimated GFR-MDRD 56; Globulin 3.2 g/dL (2.4-3.5); Glucose 99 mg/dL (83-110); Lipase 70 U/L (8-78); Potassium 4.4 mmol/L (3.5-5.1); Protein, Total 7.5 g/dL (6.0-8.3); Sodium 134 mmol/L (136-145)
[2018-09-17 18:16] LABS: Bilirubin Negative (Negative); Blood, Urine Negative (Negative); Clarity CLEAR (Clear); Glucose, Urine (Dipstick) Negative (Negative); Leukocyte Negative (Negative); Nitrite Negative (Negative); Protein, Urine (Dipstick) Negative (Neg-Trace); Urobilinogen 0.2 mg/dL (0.2-1.0); pH, Urine 6.5 (5.0-9.0)
--- NOTE | 2018-09-17 19:50 | CT ---
CT OF THE ABDOMEN AND PELVIS WITH IV CONTRAST 09/17/18 PROVIDED CLINICAL HISTORY: Left flank pain with nausea and vomiting. FINDINGS: Comparison is made with a study dated 07/23/18. Extensive emphysematous change and cyst-like changes seen involving the visualized portions of the cedrick ng bases along with ground glass opacity and interstitial thickening. Findings appear not significant ly changed with respect to the prior examination. The liver, spleen, pancreas, kidneys and adrenal glands demonstrate no acute abnormality. There is a stable cyst involving the superior pole of the right kidney. There is no bowel dilatation, inflammatory fat stranding, free fluid or lymph node enlargement appare nt. The appendix appears normal. Vascular calcification is noted involving the abdominal aorta and its branches. Mild ectasia of the a bdominal aorta is redemonstrated. Conspicuous common iliac vascular calcification is seen bilaterally . The osseous structures demonstrate no concerning osteoblastic or osteolytic lesions. IMPRESSION: No evidence for an acute process. Chronic findings as above. POS: [facility]
== END 2018-09-17 19:50 | disposition left against medical advice (07) ==
LOC: ERS 16:09
DX: N39.0 Urinary tract infection, site not specified (principal); K21.9 Gastro-esophageal reflux disease without esophagitis; F32.9 Major depressive disorder, single episode, unspecified; F03.90 Unspecified dementia, unspecified severity, without behavioral disturbance, psychotic disturbance, mood disturbance, and anxiety; J44.9 Chronic obstructive pulmonary disease, unspecified; Z87.891 Personal history of nicotine dependence; Z79.899 Other long term (current) drug therapy
CPT/HCPCS: 36415; 74177; 80053; 81003; 83605; 83690; 85025; 87086; 96361; 96365; 96375; J0696; J2405; Q9966

== ENCOUNTER 2019-02-23 20:49 | Inpatient (IN) | payer MEDICARE ==
[2019-02-23 21:43] LABS: #Eosinphils 0.1 thou/uL (0.0-0.7); #Lymphocytes 0.8 thou/uL (1.20-3.40); #Monocytes 0.4 thou/uL (0.11-0.59); #Neutrophils 3.7 thou/uL (1.40-6.50); %Eosinophils 2.5 % (0.0-10.0); %Lymphocytes 15.4 % (21.0-51.0); %Monocytes 8.3 % (0.0-10.0); %Neutrophils 73.7 % (42.0-75.0); Mean Corpuscular Hemoglobin 33.8 pg (27.0-31.0); Mean Platelet Volume 7.1 fL (7.4-10.4); Platelet Count 184 thou/uL (130-400); RBC Distribution Width 11.7 % (11.5-14.5); Red Blood Cell (RBC) Count 2.97 mill/uL (4.20-5.40); White Blood Cell (WBC) Count 5.1 thou/uL (4.8-10.8)
[2019-02-23 21:44] LABS: Bilirubin Negative (Negative); Blood, Urine Negative (Negative); Clarity Clear (Clear); Glucose, Urine (Dipstick) Normal (Negative); Leukocyte Negative Leu/uL (Negative); Nitrite Negative (Negative); Protein, Urine (Dipstick) Negative (Neg-Trace); Urobilinogen Normal mg/dL (Less than 2)
--- NOTE | 2019-02-23 21:52 | RAD ---
Portable frontal chest radiograph: 02/23/2019 COMPARISON: 04/04/2018 HISTORY: Fall, hypotension FINDINGS: The prior examination demonstrated increased linear interstitial density in the perihilar r egions and both lung bases. On this examination there is diffuse worsening of nonspecific interstitial opacity with a perihilar and bibasilar predominance. No pneumothorax or focal consolidat ion. Heart and mediastinal contours are stable. There is atherosclerotic calcification of the aortic arch. IMPRESSION: Interval worsening of nonspecific diffuse interstitial prominence. This could signify pro gression of chronic interstitial disease. Superimposed infectious process or pulmonary edema is a possibility. Clinical correlation required.
[2019-02-23 21:57] LABS: ALT (SGPT) 13 U/L (8-55); AST (SGOT) 20 U/L (5-34); Albumin 3.8 g/dL (3.4-4.8); Alkaline Phosphatase 55 U/L (40-150); Anion Gap 10 mmol/L (10-20); BUN (Urea Nitrogen) 39 mg/dL (9.8-20.1); Bilirubin, Total 0.5 mg/dL (0.2-1.2); CK (CPK) 47 U/L (29-168); Calc. Creatinine Clearance 0 mL/min (70-130); Calcium 10.3 mg/dL (7.8-10.44); Carbon Dioxide 28 mmol/L (23-31); Chloride 101 mmol/L (98-107); Estimated GFR-MDRD 82; Globulin 3.2 g/dL (2.4-3.5); Glucose 90 mg/dL (83-110); Potassium 4.1 mmol/L (3.5-5.1); Sodium 135 mmol/L (136-145)
--- NOTE | 2019-02-23 22:24 | RAD ---
RIGHT HAND TWO VIEWS: 02/23/2019 HISTORY: Fall. Trauma. Pain. COMPARISON: None. FINDINGS: There is multilevel degenerative change involving the distal interphalangeal joint, most prominently involving the 2nd and 3rd digits. There is also degenerative change of the 1st interphalangeal joint . The bones are demineralized. No displaced fracture or evidence of dislocation is seen. Questiona ble central erosive change involving the 2nd and 3rd distal interphalangeal joints may signify erosiv e osteoarthritis. IMPRESSION: 1. Chronic findings, as detailed above. 2. No displaced fracture or evidence of dislocation is seen. Of note, only two radiographs are provided. If symptoms persist, lateral examination is recommended. POS: [facility]
--- NOTE | 2019-02-23 22:49 | CT ---
CT HEAD: 02/23/2019 HISTORY: Pain. Injury. TECHNIQUE: Axial CT imaging at 5 mm intervals, from the vertex through the skull base, without contrast. FINDINGS: The imaged paranasal sinuses and mastoid air cells are well aerated. No displaced calvarial fracture . There is perihilar, deep, and subcortical white matter hypodensity, suggesting small vessel disease. There is mild cerebral volume loss. No intracranial hemorrhage, midline shift, mass effect, or vent ricular enlargement. IMPRESSION: 1. Mild cerebral volume loss and evidence of small vessel disease. 2. No intracranial hemorrhage or displaced calvarial fracture. POS: [facility]
--- NOTE | 2019-02-23 22:59 | CT ---
CT angiogram chest: 02/23/2019 COMPARISON: None HISTORY: Chest pain TECHNIQUE: Axial CT imaging at 2.5 mm intervals from thoracic inlet through upper abdomen with IV con trast using CT angiogram protocol. Coronal and oblique sagittal 3-D reformatted imaging obtained. FINDINGS: No axillary lymphadenopathy. There is small volume superior mediastinal fluid. No discrete mediastinal or hilar lymphadenopathy. Cholecystectomy clips are present. There is a tiny hypodense lesion emanating from the upper pole of the right kidney, too small to characterize and stable when compared to CT of abdomen and pelvis performed at 07/23/2018. There is a stone within the upper pole of the right kidney measuring 5 mm. No significant pleural, pericardial, or mediastinal fluid is noted. There is adequate opacification of the pulmonary arterial vasculature. No discrete filling defect is seen within the pulmonary arterial vasculature to suggest the presence of acute pulmonary arterial embolism. There is extensive abnormal fibrotic change throughout both lungs. Within the left upper lobe there i s extensive centrilobular and subpleural cystic change with coarse associated linear interstitial density. Similar findings are noted throughout the majority of the inferior anterior aspect of the ri ght upper lobe. There is prominent coarse increased interstitial density with scattered areas of centrilobular and subpleural cystic change also noted within right middle lobe and bilateral lower lo bes. There is a cavitary lesion within the posterior aspect of the left lower lobe, unchanged when compared to a CT of the abdomen and pelvis performed at 07/23/2018. No prior chest CT is available. T he interstitial prominence within both lung bases has worsened slightly when compared to CT abdomen pelvis performed 09/17/2018. Review of the osseous structures demonstrates no worrisome lytic or blastic lesion. IMPRESSION: No evidence for pulmonary arterial embolism. Extensive severe fibrotic/emphysematous changes throughout both lungs as detailed above. There is int erval increase in interstitial density within both lower lobes when compared to a prior CT examination which could signify superimposed inflammatory/infectious pneumonitis or edema. Clinical c orrelation is essential. Recommend short-term follow-up imaging following treatment to reevaluate.
[2019-02-23] MEDS ORDERED: Fentanyl 100 MCG/2 ML VIAL ONE (23:23)
[2019-02-23] MEDS ORDERED: Piperacillin/Tazobactam 4.5 GM VIAL ONE (23:24)
[2019-02-23] MEDS ORDERED: Aspirin Chewable 81 MG TAB ONE (23:24)
[2019-02-23] MEDS ORDERED: Aspirin 300 MG Suppository ONE (23:24)
[2019-02-24] MEDS ORDERED: Vancomycin HCl 750 MG in Sodium Chloride 0.9% 250 ML 250 ML IVPB SCH (00:15)
[2019-02-24 00:50] LABS: Troponin I Less than 0.010 ng/mL (< 0.028)
[2019-02-24 01:05] VITALS: BMI 22.4
[2019-02-24 04:09] LABS: Troponin I Less than 0.010 ng/mL (< 0.028)
[2019-02-24] MEDS ORDERED: Acetaminophen 650 MG Suppository PR PRN (04:51)
[2019-02-24] MEDS ORDERED: Ondansetron ODT 4 MG TAB PO PRN (04:51)
[2019-02-24] MEDS ORDERED: Ondansetron PF 4 MG/2 ML Vial IVP PRN (04:51)
[2019-02-24] MEDS ORDERED: Acetaminophen 325 MG TAB PO PRN (04:51)
[2019-02-24] MEDS ORDERED: Piperacillin/Tazobactam 4.5 GM in Sodium Chloride 0.9% 100 ML IVPB SCH ×2 (06:00→08:00)
--- NOTE | 2019-02-24 08:32 | HP ---
PRIMARY CARE DOCTOR: Lobo Granado MD. CODE STATUS: Full code, not verified at this point. CHIEF COMPLAINT: Chest pain. HISTORY OF PRESENT ILLNESS: The patient is not very cooperative to interview, seems to be confused. Information has been gathered from the staff and records. This is a 73-year-old female patient with past medical history of lung cancer, has been receiving radiation therapy. The patient came to the hospital after having chest pain, associated with cough. The symptoms had been present over the past couple of days, has been gradually getting worse, reported as moderate. The patient had a mechanical fall prior to coming to the ER, has had no significant trauma. The location of the chest pain was in the middle of the chest; on initial presentation, 10/10; during my evaluation, the pain is 2/10. REVIEW OF SYSTEMS: Unable to fully obtain at bedside. The patient is not fully oriented, so information is not very accurate. She did not report any significant symptoms except for the chest pain and shortness of breath. PAST MEDICAL HISTORY: The patient has a history of lung cancer, receiving radiation and chemo, last radiation on 01/13/2019, also COPD, dementia, cholecystectomy, hysterectomy. PSYCHIATRIC HISTORY: Depression. FAMILY HISTORY: Reviewed and non contributory for current presentation. SOCIAL HISTORY: No alcohol. No drugs. No smoking history except for being a former tobacco smoker, quit smoking less than 10 years ago. KNOWN ALLERGIES: To codeine. REPORTED MEDICATIONS: 1. Pantoprazole. 2. Sertraline. PHYSICAL EXAMINATION: VITAL SIGNS: On presentation, blood pressure 89/58 with heart rate 72, respiratory rate was 22, temperature 98; recheck blood pressure was 105/66 with heart rate 65. GENERAL: The patient is alert, disoriented, in no acute distress. HEENT: Eyes, normal conjunctivae. Moist oral mucosa. Anicteric. No JVD. RESPIRATORY: Bilateral air entry. The patient has scattered rales on the left side. CARDIOVASCULAR: Normal rate, regular rhythm. No murmurs. No gallop. No edema. ABDOMEN: Soft. Normal bowel sounds. MUSCULOSKELETAL: Baseline range of motion and strength. SKIN: Warm, intact. No pallor. No rash. No redness. Capillary refill seems to be intact. NEUROLOGIC: No evidence of any new focal weakness. Unable to fully explore as the patient has dementia. PSYCH: The patient has dementia. IMAGING STUDIES: EKG was reviewed. The patient has normal sinus rhythm with a rate of 61, [place] interval 180, QRS 102, QT corrected 512. Head CT showed no acute intracranial findings. Chest CT, interval worsening of nonspecific diffuse interstitial prominence. This could signify progression of chronic interstitial disease. Superimposed infectious process or pulmonary edema is a possibility. CT angio showed no evidence of pulmonary embolism/severe fibrotic emphysematous changes throughout both lungs as detailed above. There is interval increase in the interstitial density within both lower lobes when compared to the prior CT. Examination could signify superimposed inflammatory/infectious pneumonitis or edema. Clinical correlation is essential. Recommend short-term followup imaging following treatment to re-evaluate. LABORATORY DATA: Labs are reviewed. The patient has white count 5.1, hemoglobin 10, MCV 102, platelet count 184. Chemistry; sodium 135, potassium 4.1, chloride 101, carbon dioxide 28, anion gap 10, BUN 39, creatinine 0.7, GFR 82, glucose 90 , calcium 10.3, total bilirubin 0.5. LFTs were negative. Troponin was negative x2. Urine was negative. ASSESSMENT AND PLAN: The patient will be placed in the hospital with following medical problems: 1. Multilobar pneumonia complicated by underlying chronic emphysematous/cancer changes in the lung. The patient has been started on broad-spectrum antibiotics. We will continue for now. We will follow cultures. We will adjust treatment depending on the culture sensitivity. 2. History of dementia. The patient will need inpatient support. 3. Macrocytic anemia, this is likely secondary to underlying chronic disease including cancer and hemoglobin is stable, we will monitor, this can be addressed as outpatient. 4. Hyponatremia, sodium 135, this is mild, no need for any acute intervention at this point. 5. History of lung cancer, this is a chronic problem, seems to be stable, can be addressed with her primary oncologist once the patient is stable. 6. Deep venous thrombosis prophylaxis. 7. History of gastroesophageal reflux disease, reconcile home medications. Job ID: [id number] [facility]
[2019-02-24] MEDS ORDERED: Enoxaparin Sodium 40 MG/0.4 ML SYRINGE SC SCH (09:00)
--- NOTE | 2019-02-24 10:27 | DIS ---
DATE OF ADMISSION: 02/23/2019 DATE OF DISCHARGE: 02/24/2019 PRIMARY CARE PHYSICIAN: Ildefonso Jackson MD DISPOSITION: Discharged home. FINAL DIAGNOSES: 1. Chest pain most likely due to occult rib fracture. 2. Recent fall. 3. Malignant neoplasm of the lung. DISCHARGE MEDICATIONS: 1. Zoloft 50 mg a day. 2. Protonix 40 mg a day. 3. Naprosyn 220 mg b.i.d. p.r.n. for chest pain. ALLERGIES: TO CODEINE. DIET: As tolerated. CODE STATUS: DNR, has living will, confirmed with power of media services specialist. PENDING AT TIME OF DISCHARGE: Nothing. HOSPITAL COURSE: [facility]. She had a CT of the chest and chest x-ray, which were unrevealing. On my exam, the chest x-ray reveals markedly thin bones. There is no delineation of her anterior portions of her ribs on chest x-ray. CT scan does not mention or confirm any dislocation of her ribs. On my physical examination, she is markedly tender about C4 close to the costochondral junction. It is my impression she has an occult rib fracture. I have discussed this with her daughter and her, who are present. She is being discharged home at their request on 220 mg of Aleve p.r.n. twice a day and her usual home medicines. She is to follow up as needed with Dr. Becerra. CONSULTATIONS: None. PROCEDURES: None. Job ID: [id number]
[2019-02-24 12:36] VITALS: BP 100/55; TEMP 97.6
[2019-02-24] MEDS ORDERED: Vancomycin HCl 500 MG in Sodium Chloride 0.9% 100 ML IVPB SCH (15:00)
== END 2019-02-24 12:26 | disposition home or self-care (01) | DRG 206 ==
LOC: ERS 20:49 → 2NO 23:08
PROVIDERS: ADMIT Hospitalist; ATTEND Hospitalist
DX: S22.39XA Fracture of one rib, unspecified side, initial encounter for closed fracture (principal); E87.1 Hypo-osmolality and hyponatremia; C34.90 Malignant neoplasm of unspecified part of unspecified bronchus or lung; J44.9 Chronic obstructive pulmonary disease, unspecified; Z66 Do not resuscitate; F03.90 Unspecified dementia, unspecified severity, without behavioral disturbance, psychotic disturbance, mood disturbance, and anxiety; F32.9 Major depressive disorder, single episode, unspecified; D63.0 Anemia in neoplastic disease; K21.9 Gastro-esophageal reflux disease without esophagitis; W19.XXXA Unspecified fall, initial encounter; Z92.21 Personal history of antineoplastic chemotherapy; Z92.3 Personal history of irradiation; Z90.49 Acquired absence of other specified parts of digestive tract; Z90.710 Acquired absence of both cervix and uterus; Z87.891 Personal history of nicotine dependence; Z88.5 Allergy status to narcotic agent
CPT/HCPCS: 36415; 70450; 71045; 71275; 80053; 81003; 82550; 83880; 84484; 85025; 93005; A4353; J1650; J1956; J2543; J3010; J3370; J3490; J7050; Q9966

== ENCOUNTER 2019-03-27 07:03 | Inpatient (IN) | payer MEDICARE ==
[2019-03-27 07:50] LABS: #Eosinphils 0.2 thou/uL (0.0-0.7); #Lymphocytes 0.7 thou/uL (1.20-3.40); #Monocytes 0.4 thou/uL (0.11-0.59); #Neutrophils 6.8 thou/uL (1.40-6.50); %Eosinophils 2.1 % (0.0-10.0); %Monocytes 5.3 % (0.0-10.0); %Neutrophils 83.6 % (42.0-75.0); Hemoglobin 10.8 g/dL (12.0-16.0); Mean Corpuscular HGB CONC 34.2 g/dL (32.0-36.0); Mean Corpuscular Hemoglobin 34.4 pg (27.0-31.0); Mean Platelet Volume 7.2 fL (7.4-10.4); Platelet Count 177 thou/uL (130-400); RBC Distribution Width 11.8 % (11.5-14.5); Red Blood Cell (RBC) Count 3.15 mill/uL (4.20-5.40); White Blood Cell (WBC) Count 8.2 thou/uL (4.8-10.8)
[2019-03-27] MEDS ORDERED: Ondansetron PF 4 MG/2 ML Vial ONE ×2 (07:56→08:05)
[2019-03-27] MEDS ORDERED: Morphine 4 MG/ML VIAL ONE ×2 (07:56→12:44)
[2019-03-27 08:11] LABS: ALT (SGPT) 15 U/L (8-55); AST (SGOT) 25 U/L (5-34); Albumin 3.8 g/dL (3.4-4.8); Alkaline Phosphatase 42 U/L (40-150); Anion Gap 11 mmol/L (10-20); BUN (Urea Nitrogen) 28 mg/dL (9.8-20.1); Bilirubin, Total 0.5 mg/dL (0.2-1.2); Calc. Creatinine Clearance 0 mL/min (70-130); Calcium 9.9 mg/dL (7.8-10.44); Carbon Dioxide 22 mmol/L (23-31); Chloride 108 mmol/L (98-107); Estimated GFR-MDRD 77; Glucose 83 mg/dL (83-110); Protein, Total 6.8 g/dL (6.0-8.3); Sodium 137 mmol/L (136-145)
[2019-03-27] MEDS ORDERED: Fentanyl 100 MCG/2 ML VIAL SLOW IVP SCH (08:15)
[2019-03-27 08:26] LABS: PTT 24.5 SEC (22.9-36.1); Prothrombin Time 13.6 SEC (12.0-14.7)
--- NOTE | 2019-03-27 09:07 | CT ---
LUMBAR SPINE CT SCAN WITHOUT IV CONTRAST: HISTORY: Injury from trauma with back pain. FINDINGS: Mild vertical height loss. Burst-type fracture of L1 with very minimal superior retropulsion. Heter ogeneous bony demineralization. There is mild indention of the ventral thecal sac from the retropuls ion. Nonobstructing bilateral renal calculi are noted. Mild central canal and lateral recess stenos is at L3-L4. Moderate to severe bilateral recess and central canal stenosis at L4-L5. IMPRESSION: Mild vertical height loss burst fracture of L1. Variable severity canal and lateral recess stenosis most marked at L4-L5 followed by L3-L4. Bone demineralization. No other acute fracture. Nonobstruc ting bilateral renal calculi. POS: [facility]
[2019-03-27 11:04] LABS: Bilirubin Negative (Negative); Blood, Urine Negative (Negative); Clarity Turbid (Clear); Glucose, Urine (Dipstick) Normal (Negative); Leukocyte Negative Leu/uL (Negative); Nitrite Negative (Negative); Protein, Urine (Dipstick) Negative (Neg-Trace); Urobilinogen Normal mg/dL (Less than 2)
--- NOTE | 2019-03-27 14:24 | MRI ---
LUMBAR SPINE MRI: Date: 03/27/19 COMPARISON: None. HISTORY: Injury, trauma, pain. TECHNIQUE: Multiplanar, multisequence MR imaging of the lumbar spine without contrast. FINDINGS: STIR imaging demonstrates edema involving the superior aspect of the L1 vertebral body consistent wit h acute fracture involving the superior end plate. The fracture involves the anterior and posterior c ortex with minimal retropulsion along the superior aspect of the L1 vertebral body, consistent with a burst fracture. No additional fracture is evident on the basis of STIR hyperintensity. Urinary bladder appears distended. Evaluation for central canal and/or neural foraminal stenosis is limited secondary to motion artifact on this exam. Imaging of the right upper quadrant demonstrates intra and extrahepatic biliary dilatation, etiology uncertain. Correlation with LFTs is suggested. On the basis of five lumbar-type vertebral bodies, conus medullaris terminates at the T12-L1 level. T12-L1: There is mild bilateral facet hypertrophy. There is disc desiccation. No significant central canal or neural foraminal stenosis. The minimal retropulsion associated with the L1 fracture superio r causes no central canal stenosis. L1-2: Mild bilateral facet hypertrophy. No central canal or neural foraminal stenosis. L2-3: Mild bilateral facet hypertrophy with no significant central canal or neural foraminal stenosi s. L3-4: Mild bilateral facet hypertrophy. No significant central canal or neural foraminal stenosis. L4-5: There is disc desiccation and minimal disc bulge. There is moderate bilateral facet hypertroph y. There is mild central canal stenosis and no significant neural foraminal stenosis. L5-S1: There is disc space narrowing and disc desiccation with mild disc bulge. Mild central canal s tenosis. Bilateral facet hypertrophy causes mild neural foraminal stenosis. Left greater than right. IMPRESSION: 1. Burst fracture at L1 with no significant central canal or neural foraminal stenosis. The degree o f vertebral body height loss at L1 is approximately 20% centrally. 2. Intra and extrahepatic biliary dilatation of uncertain etiology on the basis of this exam. 3. Urinary bladder distention. POS: [facility]
[2019-03-27] MEDS ORDERED: Ondansetron PF 4 MG/2 ML Vial IVP PRN ×2 (15:07→15:57)
[2019-03-27] MEDS ORDERED: Ondansetron ODT 4 MG TAB SL PRN (15:07)
[2019-03-27] MEDS ORDERED: Morphine 4 MG/ML VIAL SLOW IVP PRN (15:08)
--- NOTE | 2019-03-27 15:41 | HP ---
REQUESTING PHYSICIAN: Dr. Alcantar. ATTENDING SURGEON: Dr. Riley. CONSULTATION: Neurosurgery, Dr. Rodriguez. HISTORY OF PRESENT ILLNESS: The patient is a 73-year-old woman, who reportedly fell at home this morning. She was with family, who found her there is no history or report of loss of consciousness. The patient stood up to ambulate without her walker when she fell back down. The patient had immediate back pain. She was brought to the emergency department by ground EMS, where she underwent evaluation and examination to include CT examination of her back and MRI of her back, which revealed a 20% burst fracture of L1, at which time, they attempted to get the patient placed in rehab after being fitted with her LSO brace. Unfortunately, due to insurance, she was unable to do that, at which time, we were asked to evaluate the patient for admission to begin physical and occupational therapy and pain control. ALLERGIES: CODEINE CAUSES EXTREME NAUSEA AND VOMITING. CURRENT MEDICATIONS: 1. Pantoprazole. 2. Sertraline. 3. Spiriva. 4. Megestrol. PAST MEDICAL HISTORY: Metastatic lung cancer. The patient had last chemo on Sunday. Daughter reports that this is terminal and this last attempt is essentially palliative. COPD, depression. SURGICAL HISTORY: Cholecystectomy and hysterectomy. SOCIAL HISTORY: The patient lives independently at home. The patient has family nearby, who do frequent checks on her, and during the day, she has a caregiver. The patient stopped smoking approximately four years ago. No history of drug or alcohol use. REVIEW OF SYSTEMS: A 10-point review of systems is negative except as otherwise stated. PHYSICAL EXAMINATION: VITAL SIGNS: Blood pressure 100/60, heart rate 51, respirations 18, oxygen saturation 100% on 2 L via nasal cannula, and temperature is 97.9. GENERAL: The patient is resting comfortably in bed. She is awake, A and O x2. She has some confusion as to where she is at, but is quickly reoriented. [place] Coma Scale is 14. She is -1 for eyes due to being asleep when I approached her. HEENT: Head is normocephalic. Eyes, extraocular motion intact. PERRLA bilaterally. Ears are atraumatic without discharge. Nose is atraumatic without discharge. Oropharynx is clear. NECK: Nontender. Trachea is midline. No JVD. CHEST: Clear to auscultation with moderate inspiratory and expiratory effort. HEART: Regular rate and rhythm. ABDOMEN: Soft, flat, nontender with active bowel sounds. PELVIS: Stable. EXTREMITIES: Neurovascularly intact x4. BACK: By report is significantly tender thoracolumbar junction consistent with her fracture. The patient also has paraspinous tenderness and spasms noted. LABORATORY FINDINGS: White blood cell count 8.2, hemoglobin 10.8, hematocrit 31.6, platelets 177. Sodium 137, potassium 4.0, chloride 108, CO2 of 22, BUN 28, creatinine 0.74, glucose 83. LFTs are unremarkable. PT 13.6, INR 1.0, PTT 24.5. UA is unremarkable. RADIOGRAPHIC FINDINGS: CT of the lumbar spine shows mild vertical height loss, burst fracture of L1. There is variable severity canal and lateral recess stenosis, most marked at L4-L5 followed by L3-L4. No other acute fractures noted. MRI of lumbar spine shows a burst fracture of L1 with no significant central canal or neural foraminal stenosis. The degree of vertebral body height loss at L1 is approximately 20% centrally. ASSESSMENT: 1. Status post mechanical fall. 2. L1 burst fracture. 3. History of advanced metastatic lung cancer. 4. Acute pain secondary to trauma. PLAN: Plan will be to admit the patient to the surgical floor for pain control. Begin physical and occupational therapy when she is able and discuss placement with family. The patient is likely a swing bed/detention facility candidate. The patient per discussion with Neurosurgery will be treated nonoperatively with an LSO brace. The evaluation, examination, laboratory, and radiographic findings will be discussed with Dr. Riley after this dictation. Job ID: [id number]
[2019-03-27] MEDS ORDERED: Ondansetron ODT 4 MG TAB PO PRN (15:57)
[2019-03-27] MEDS ORDERED: Melatonin 3 MG TAB PO PRN (15:57)
[2019-03-27] MEDS ORDERED: Acetaminophen 1,000 MG in Premix Bag 1 BAG IVPB SCH (15:57)
[2019-03-27] MEDS ORDERED: traMADol HCl 50 MG TAB PO PRN ×2 (15:57)
[2019-03-27] MEDS ORDERED: Cyclobenzaprine 10 MG TAB PO PRN (15:57)
[2019-03-27] MEDS ORDERED: Dextrose 50% Abboject 50 ML SYRINGE SLOW IVP PRN (15:57)
[2019-03-27] MEDS ORDERED: Ketorolac Tromethamine 30 MG/ML VIAL IVP SCH (15:57)
[2019-03-27] MEDS ORDERED: Dextrose 5% in Water 1,000 ML IV PRN (15:57)
[2019-03-27] MEDS ORDERED: Sodium Chloride 0.9% 1,000 ML IV SCH (15:57)
--- NOTE | 2019-03-27 17:17 | CON ---
DATE OF CONSULTATION: HISTORY OF PRESENT ILLNESS: Ms. Cuellar is a 73-year-old female, who was brought to the emergency department this morning for a fall when she was getting out of bed this morning and new excruciating back pain. The patient is seen at [facility] for cancer treatment of lung cancer, which has metastasized to her bones. The last chemo treatment was on Sunday. Neurosurgery was consulted due to CT evidence of an L1 burst fracture. I saw Ms. Cuellar in the ER. She is resting comfortably, but complains of low back pain and appears quite painful if she coughs or sneezes, and moving her lower extremities is still quite painful. The patient has good range of motion of both upper and lower extremities. There is some confusion about the events leading to her being brought to the hospital. 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 The patient lives next to her daughter. Her daughter has been staying with her at night and helps her twice a week and a sitter during the day. REVIEW OF SYSTEMS: A 10-point review of systems is completed and is negative other than stated in the above HPI. CURRENT MEDICATIONS: 1. Pantoprazole. 2. Sertraline. 3. Spiriva. 4. Megestrol. ALLERGIES: CODEINE AND CODEINE SULFATE. PAST MEDICAL HISTORY: Lung cancer, malignant to bone, treatment with radiation and chemo; COPD; dementia; reflux. PAST SURGICAL HISTORY: Cholecystectomy and hysterectomy. SOCIAL HISTORY: The patient denies alcohol use. She is a former smoker. Lives alone, but next to her daughter who stays with her at night and has a sitter during the day. PHYSICAL EXAMINATION: VITAL SIGNS: Blood pressure 98/64, heart rate 53, respirations 23, O2 stats 94% on room air, temperature 97.9. CONSTITUTIONAL: The patient is alert and oriented. The patient is afebrile. She is in pain, but appears nontoxic. HEENT: Head is normocephalic and atraumatic. Pupils are equal, round, and reactive to light. Extraocular movements are intact. Hearing is intact. Moist mucous membranes. RESPIRATIONS: Normal work of breathing on room air. Symmetric chest rise. CARDIOVASCULAR: Regular rate and rhythm. EXTREMITIES: Upper and lower extremities, strength is normal 5/5. No changes in sensation in biceps, triceps, electrical checkout mechanic strength, hip flexion, knee flexion, knee extension, dorsiflexion, and plantar flexion. Lower extremities, movement does produce pain in the low back. NEUROLOGIC: The patient is alert and oriented. There are no lateralizing defects. Speech is spontaneous and fluent. Normal fund of knowledge. Cranial nerves 2 through 12 are tested and intact. No changes in sensation bilaterally. IMAGING: CT of the lumbar spine shows an L1 burst fracture. There is minimal height loss and no retropulsion. ASSESSMENT AND PLAN: This is a 73-year-old female, who has sustained a lumbar burst fracture, who also has significant metastatic disease. Our recommendations are to have her placed in an LSO brace when she is up and out of bed, and pain control. If she is safe to go home, she may go home. Otherwise, rehab may be a good placement for her. If there are any further questions, please contact Neurosurgery team. Job ID: [id number]
[2019-03-27] MEDS: Acetaminophen 325 MG TAB PO SCH ×3 (18:37→20:09)
[2019-03-27] MEDS: Famotidine 20 MG TAB PO SCH ×2 (20:06→20:07)
[2019-03-27] MEDS: Ibuprofen 800 MG TAB PO SCH (20:07)
--- NOTE | 2019-03-27 22:27 | PRG ---
DATE OF SERVICE: 03/27/2019 SUBJECTIVE: Ms. Cuellar is a 73-year-old woman status post ground level fall at home. She sustained a burst fracture of L1. She was treated conservative by using LSO brace per Neurosurgery. She also has a history of metastatic lung cancer, COPD and depression. See voices no concern. She reports pain is well controlled. She did not eat very well chronically and she is able to sip some protein shake this afternoon. OBJECTIVE: GENERAL: The patient is lying down in bed, looked fatigued and pale. No respiratory distress. VITAL SIGNS: Temperature 97.4, heart rate 58, respiratory rate 16, O2 saturation 91 on 2 L and blood pressure 85/51. breathing moderated labored effort LUNGS: Rales scatter bilaterally. HEART: Regular rate and rhythm. ABDOMEN: Soft, nondistended. Acute bowel sounds. EXTREMITIES: Neurovascularly intact x4. ASSESSMENT: 1. Status post mechanical fall. 2. L1 burst fracture, conservative treatment using LSO brace per Neurosurgery. 3. History of advanced metastatic lung cancer. PLAN: Continue supportive care. Continue using LSO braces when she is up or out of bed. The patient is planned to be placed in a swing bed or [facility] facility. Job ID: [id number] [facility]
[2019-03-27 23:33] VITALS: BMI 21.7
[2019-03-28] MEDS: Acetaminophen 325 MG TAB PO SCH ×4 (03:24→21:02)
[2019-03-28] MEDS: Ibuprofen 800 MG TAB PO SCH ×3 (03:24→21:02)
[2019-03-28 05:46] LABS: Anion Gap 12 mmol/L (10-20); BUN (Urea Nitrogen) 20 mg/dL (9.8-20.1); Calc. Creatinine Clearance 57 mL/min (70-130); Calcium 10.1 mg/dL (7.8-10.44); Carbon Dioxide 22 mmol/L (23-31); Chloride 108 mmol/L (98-107); Estimated GFR-MDRD 78; Glucose 80 mg/dL (83-110); Potassium 4.2 mmol/L (3.5-5.1); Sodium 138 mmol/L (136-145)
[2019-03-28 06:05] LABS: #Eosinphils 0.2 thou/uL (0.0-0.7); #Lymphocytes 0.6 thou/uL (1.20-3.40); #Monocytes 0.2 thou/uL (0.11-0.59); #Neutrophils 3.5 thou/uL (1.40-6.50); %Lymphocytes 12.8 % (21.0-51.0); %Monocytes 4.4 % (0.0-10.0); %Neutrophils 77.9 % (42.0-75.0); Hemoglobin 13.9 g/dL (12.0-16.0); Mean Corpuscular HGB CONC 29.5 g/dL (32.0-36.0); Mean Corpuscular Hemoglobin 29.3 pg (27.0-31.0); Mean Corpuscular Volume 99.6 fL (78.0-98.0); Mean Platelet Volume 7.9 fL (7.4-10.4); Platelet Count 104 thou/uL (130-400); Red Blood Cell (RBC) Count 4.74 mill/uL (4.20-5.40); White Blood Cell (WBC) Count 4.5 thou/uL (4.8-10.8)
[2019-03-28] MEDS ORDERED: Megestrol Acetate 40 MG TAB PO SCH (09:00)
[2019-03-28] MEDS ORDERED: Prevnar 13-Val Conj/PF 0.5 ML SYRINGE IM ONE (09:00)
[2019-03-28] MEDS: Famotidine 20 MG TAB PO SCH ×2 (09:28→20:55)
[2019-03-28] MEDS: Aspirin Chewable 81 MG TAB PO SCH ×2 (09:29→20:55)
[2019-03-28] MEDS ORDERED: Hydrocortisone Sod Succ/PF 100 mg/2 ml Vial IVP SCH ×2 (14:15→22:00)
--- NOTE | 2019-03-28 14:38 | PRG ---
DATE OF SERVICE: 03/28/2019 SUBJECTIVE: The patient is currently on the surgical floor. She is hospital day 2 status post a ground level fall when she sustained a 20% burst fracture of L1, that is being treated with an LSO brace. Overnight, she had no issues. This morning, her appetite still is minimal, which the daughter at bedside tells us this has become her norm. The patient takes Megace at home, but the daughter states that it has been less helpful recently. Otherwise, the patient's pain is controlled. She is awaiting Physical Therapy to work with her this morning. OBJECTIVE: VITAL SIGNS: Temperature is 97.6, heart rate 64, blood pressure 90/57, respirations 16, oxygen saturation 97% on 2 L via nasal cannula. GENERAL: The patient is resting comfortably in bed. She is awake, appropriate, and appears at her baseline. Again, this is confirmed by her daughter. She is A and O x3. She does have some confusion, but is easily reoriented. She follows simple commands. HEENT: Unremarkable. LUNGS: Clear to auscultation with good inspiratory and expiratory effort. HEART: Regular rate and rhythm. ABDOMEN: Soft, flat, nontender with active bowel sounds. EXTREMITIES: Neurovascularly intact x4. The patient has LSO brace fitted. LABORATORY FINDINGS: White blood cell count 4.5, hemoglobin 13.9, hematocrit 47.2, platelets 104. Sodium 138, potassium 4.2, chloride 108, CO2 of 22, BUN 20, creatinine 0.73, glucose 80. Cortisol is 8.30. There were no radiographs to review this morning. ASSESSMENT AND PLAN: 1. Status post ground level fall. 2. L1 burst fracture, treated with lumbar sacral orthosis brace. 3. History of advanced metastatic lung cancer. 4. Acute pain secondary to trauma. 5. Adrenal insufficiency. Plan will be to start the patient on hydrocortisone. We will also adjust her pain medications as the daughter states that she does complain of pain when we are not around, and she is concerned she will not be able to work with therapy. We will also add Marinol to her diet stimulant regimen and have adjusted her diet and have allowed her to request nutrition throughout the day, not just at mealtime. The evaluation and examination were done with Dr. Riley this morning during rounds. It was also discussed with the patient and family. Palliative Care consult to assist with placement. Job ID: [id number]
[2019-03-28] MEDS: traMADol HCl 50 MG TAB PO SCH ×3 (16:26→22:35)
[2019-03-28] MEDS: Dronabinol 2.5 MG CAP PO SCH (17:08)
[2019-03-28] MEDS: Melatonin 3 MG TAB PO SCH (20:55)
[2019-03-28] MEDS ORDERED: predniSONE 20 MG TAB PO SCH (22:00)
--- NOTE | 2019-03-28 22:14 | PRG ---
DATE OF SERVICE: 03/28/2019 SUBJECTIVE: Ms. Cuellar is a 73-year-old woman, status post ground level fall. She sustained a burst fracture of L1. She was treated conservatively using LSO brace per Neurosurgery. She has a history of metastatic lung cancer, COPD, and depression. She voiced no concern. Pain is well controlled. She developed no fever or shortness of breath. She is able to drink 4 to 5 bottle of boost a day. She denies solid food. OBJECTIVE: GENERAL: The patient is lying down in bed, comfortable, in no acute distress. VITAL SIGNS: Stable. LUNGS: Clear bilaterally. HEART: Regular rate and rhythm. ABDOMEN: Soft, nondistended. EXTREMITIES: Neurovascularly intact x4. ASSESSMENT AND PLAN: 1. Status post mechanical fall. 2. L1 burst fracture, conservative treatment using LSO brace per Neurosurgery. 3. History of advanced metastatic lung cancer. Continue supportive care. Continue using LSO brace. The patient is waiting for a swing bed placement. Job ID: [id number]
[2019-03-29] MEDS: Acetaminophen 325 MG TAB PO SCH ×5 (04:30→23:54)
[2019-03-29] MEDS: traMADol HCl 50 MG TAB PO SCH ×2 (04:30→09:02)
[2019-03-29] MEDS: Ibuprofen 800 MG TAB PO SCH ×3 (05:04→21:44)
[2019-03-29] MEDS: predniSONE 20 MG TAB PO SCH (08:53)
[2019-03-29] MEDS: Famotidine 20 MG TAB PO SCH ×2 (08:53→20:00)
[2019-03-29] MEDS: Aspirin Chewable 81 MG TAB PO SCH ×2 (08:53→20:00)
[2019-03-29] MEDS: Dronabinol 2.5 MG CAP PO SCH ×2 (08:53→17:31)
[2019-03-29] MEDS ORDERED: traMADol HCl 50 MG TAB PO PRN (09:56)
--- NOTE | 2019-03-29 10:18 | PRG ---
DATE OF SERVICE: SUBJECTIVE: The patient is currently on the surgical floor. She is status post a ground level fall in which she sustained a L1 burst fracture that is being treated with an LSO brace. Overnight, she had no issues. She has been awaiting placement. Family has been discussing options with Case Management and Palliative Care. She is otherwise doing well. We have added Marinol to her diet stimulant regimen in hopes of increasing her appetite. Daughter this morning states that she did eat a little bit more than before to include boost shakes and half of a pancake. The patient's pain is controlled. She is tolerating a diet. Her bowel function has returned. OBJECTIVE: VITAL SIGNS: Temperature is 97.8, heart rate 69, blood pressure 93/61, respirations 14, oxygen saturation 92% on room air. GENERAL: The patient is resting comfortably. She is at baseline mentation. She will interact appropriately and answers simple questions, follows simple commands. She has been able to ambulate to the bathroom with minimal assistance. LUNGS: Clear to auscultation bilaterally. HEART: Regular rate and rhythm. ABDOMEN: Soft, flat, nontender with active bowel sounds. EXTREMITIES: Neurovascularly intact x4. LABORATORY DATA: There are no labs or radiographs this morning. ASSESSMENT AND PLAN: 1. Status post ground level fall. 2. L1 burst fracture, treated with an LSO brace. 3. History of advanced metastatic lung cancer. 4. Adrenal insufficiency, treated with prednisone. PLAN: Plan will be to continue supportive care per Case Management note. The patient will be here likely until Sunday. We will continue physical and occupational therapy and await final placement determination. Job ID: [id number]
--- NOTE | 2019-03-29 13:41 | EKG ---
Test Reason : Blood Pressure : / mmHG Vent. Rate : 060 BPM Atrial Rate : 060 BPM P-R Int : 174 ms QRS Dur : 098 ms QT Int : 434 ms P-R-T Axes : 057 -46 046 degrees QTc Int : 434 ms Normal sinus rhythm Left anterior fascicular block Abnormal ECG Confirmed by MANSOOR CRABTREE, SHANEKA ([id number]), rewrite editor MERVAT YEUNG ([id number]) on 03/29/2019 1:40:50 PM Referred By: Confirmed By:SHANEKA MAX MD
[2019-03-29] MEDS: Melatonin 3 MG TAB PO SCH (20:00)
[2019-03-30] MEDS: Ibuprofen 800 MG TAB PO SCH ×3 (05:58→20:34)
[2019-03-30] MEDS: Acetaminophen 325 MG TAB PO SCH ×4 (05:58→20:33)
[2019-03-30] MEDS: Dronabinol 2.5 MG CAP PO SCH ×2 (07:05→17:34)
[2019-03-30] MEDS: Famotidine 20 MG TAB PO SCH ×2 (08:49→20:33)
[2019-03-30] MEDS: predniSONE 20 MG TAB PO SCH (08:49)
[2019-03-30] MEDS: Polyethylene Glycol 3350 17 GM Packet PO SCH (08:49)
[2019-03-30] MEDS: Senokot S 8.6-50 MG TAB PO SCH ×2 (08:49→20:33)
[2019-03-30] MEDS: Aspirin Chewable 81 MG TAB PO SCH ×2 (08:49→20:33)
--- NOTE | 2019-03-30 09:51 | PRG ---
DATE OF SERVICE: 03/30/2019 SUBJECTIVE: The patient is currently on the surgical floor. She is status post ground level fall when she sustained a L1 burst fracture that is being treated with an LSO brace. The daughter states that the patient did not sleep well last night, but thankfully she was there to keep her oriented and calm. Otherwise, her appetite is improved slightly, though she still is not taking in many calories. The patient's pain is controlled. She denies any other complaints. She was able to work with therapy yesterday, which consisted primarily of fitting her brace and standing with assistance. OBJECTIVE: VITAL SIGNS: Temperature is 97.6, heart rate 67, blood pressure 103/65, respirations 14, oxygen saturation 94% on room air. GENERAL: The patient is resting comfortably in bed. She is awake, appropriate, responds by questions, and appears to be oriented. Daughter states that she is at her baseline. LUNGS: Clear to auscultation with good inspiratory and expiratory effort. HEART: Regular rate and rhythm. ABDOMEN: Soft, flat, nontender with active bowel sounds. EXTREMITIES: Neurovascularly intact. DIAGNOSTIC DATA: There are no labs or radiographs to review this morning. ASSESSMENT AND PLAN: 1. Status post ground level fall. 2. L1 burst fracture, treated with LSO brace. 3. History of advanced metastatic lung cancer. 4. Adrenal insufficiency, treated with prednisone, stable. PLAN: Plan will be to continue supportive care and await placement decision for tomorrow. Job ID: [id number]
[2019-03-30] MEDS: Melatonin 3 MG TAB PO SCH (20:33)
--- NOTE | 2019-03-30 21:53 | PRG ---
DATE OF SERVICE: 03/30/2019 SUBJECTIVE: Ms. Cuellar is a 73-year-old woman status post ground level fall. She sustained burst fracture of L1. She was treated conservatively using LSO braces per Neurosurgery. She has history of metastatic lung cancer, COPD, and depression. She voiced no concern. Pain is well controlled. She developed no fever or shortness of breath. She was able to drink 3-4 bottles of Boost today. OBJECTIVE: GENERAL: The patient lying down in bed, comfortable, in no acute distress. VITAL SIGNS: Stable. LUNGS: Clear bilaterally. HEART: Regular rate and rhythm. ABDOMEN: Soft, nondistended. NEUROVASCULAR: Intact x4. ASSESSMENT AND PLAN: 1. Status post mechanical fall. 2. L1 burst fracture. Conservative treatment using LSO brace per Neurosurgery. History of advanced metastatic lung cancer. Continue supportive care. Continue using LSO brace. Continue DVT and gastritis prophylaxis. The patient is waiting for swing bed placement. Job ID: [id number] MTDD
[2019-03-31] MEDS: Acetaminophen 325 MG TAB PO SCH ×4 (04:02→20:37)
[2019-03-31] MEDS: Ibuprofen 800 MG TAB PO SCH ×3 (06:32→20:37)
[2019-03-31] MEDS: Dronabinol 2.5 MG CAP PO SCH ×2 (06:32→17:20)
[2019-03-31] MEDS: Polyethylene Glycol 3350 17 GM Packet PO SCH (08:10)
[2019-03-31] MEDS: predniSONE 20 MG TAB PO SCH (08:11)
[2019-03-31] MEDS: Aspirin Chewable 81 MG TAB PO SCH ×2 (08:12→20:34)
[2019-03-31] MEDS: Famotidine 20 MG TAB PO SCH ×2 (08:12→20:34)
[2019-03-31] MEDS: Senokot S 8.6-50 MG TAB PO SCH ×2 (08:12→20:35)
--- NOTE | 2019-03-31 15:00 | PRG ---
DATE OF SERVICE: 03/31/2019 SUBJECTIVE: The patient remains on the surgical floor. She was admitted to the hospital status post ground level fall when she sustained an L1 burst fracture. The burst fracture is being treated with an LSO brace. She has been working with Physical and Occupational Therapy, and we are awaiting final placement decision. The patient has had a slight increase in her appetite and states that she is "feeling better." Her total intake though is still fairly low. OBJECTIVE: VITAL SIGNS: Temperature is 98.1, heart rate 65, blood pressure 114/77, respirations 14, and oxygen saturation is 96% on room air. GENERAL: The patient is resting comfortably in bed. She is awake, alert, verbally appropriate, and responsive. LUNGS: Clear to auscultation bilaterally. HEART: Regular rate and rhythm. ABDOMEN: Soft, flat, and nontender with active bowel sounds. EXTREMITIES: Neurovascularly intact x4. DIAGNOSTIC DATA: There are no labs or radiographs to review this morning. ASSESSMENT: 1. Status post ground level fall. 2. L1 burst fracture, treated with LSO brace. 3. History of advanced metastatic lung cancer. 4. Adrenal insufficiency, treated with prednisone, stable. PLAN: Plan will be to continue supportive care, physical and occupational therapy, and await placement decision. This morning, Dr. Riley discussed PEG tube placement option to the patient and the daughter, who was at bedside. They have declined going this route. We will with the Marinol and Megace appetite stimulant and encouraging the patient to eat. Job ID: [id number]
[2019-03-31] MEDS: Melatonin 3 MG TAB PO SCH (20:34)
--- NOTE | 2019-03-31 21:38 | PRG ---
DATE OF SERVICE: 03/31/2019 SUBJECTIVE: Ms. Cuellra is a 73-year-old female, status post ground level fall. She sustained a burst fracture of L1. She was treated conservatively using LSO braces per Neurosurgery. The patient has a history of metastatic lung cancer, COPD, depression, and she is DNR. The patient voices no concerns. Pain is well controlled. She developed no fever or shortness of breath. She is able to drink 3 to 4 bottles of Boost today. She has one bowel movement today. Urine adequate. OBJECTIVE: GENERAL: The patient lying down in bed, comfortable, no acute distress. VITAL SIGNS: Stable. LUNGS: Clear bilaterally. HEART: Regular rate and rhythm. ABDOMEN: Soft and nondistended. NEUROVASCULAR: Intact x4. ASSESSMENT AND PLAN: 1. Status post mechanical ground level fall. 2. L1 burst fracture. Conservative treatment using LSO brace. 3. History of advanced metastatic lung cancer. PLAN: Continue supportive care. Continue LSO brace. Continue DVT and gastritis prophylaxis. The patient is waiting for swing bed placement. Job ID: [id number]
[2019-04-01] MEDS: Ibuprofen 800 MG TAB PO SCH (01:41)
[2019-04-01] MEDS: Acetaminophen 325 MG TAB PO SCH ×4 (01:41→16:21)
[2019-04-01] MEDS: Dronabinol 2.5 MG CAP PO SCH ×2 (07:44→16:21)
[2019-04-01] MEDS: predniSONE 20 MG TAB PO SCH (07:44)
[2019-04-01] MEDS: Polyethylene Glycol 3350 17 GM Packet PO SCH (07:47)
[2019-04-01] MEDS: Famotidine 20 MG TAB PO SCH (07:47)
[2019-04-01] MEDS: Aspirin Chewable 81 MG TAB PO SCH (07:47)
[2019-04-01] MEDS: Senokot S 8.6-50 MG TAB PO SCH (07:47)
[2019-04-01] MEDS ORDERED: Ibuprofen 600 MG TAB PO PRN (09:00)
--- NOTE | 2019-04-01 10:56 | PRG ---
DATE OF SERVICE: 04/01/2019 73-year-old female status post ground level fall with past medical history of metastatic lung cancer, COPD, and an L1 burst fracture treated conservatively by Neurosurgery. SUBJECTIVE: The patient is doing well this morning. Denies pain. Denies nausea, vomiting, and respiratory distress. She is drinking her Boost shakes three times per day. She was having trouble having a bowel movement and was given lactulose yesterday without any noticed effect. Otherwise, she voices no concerns or complaints. She is not eating much. She does not like the smell of the food. OBJECTIVE: VITAL SIGNS: Temp 97.5, pulse 55, respirations 16, 99% saturation on room air, and blood pressure 124/75. Vital signs stable overnight. GENERAL: Well-appearing. CARDIAC: Regular rate and rhythm. No murmur. RESPIRATORY: Clear to auscultation bilaterally. No respiratory distress. ABDOMEN: Active bowel sounds. Nontender to palpation. Soft and nondistended. EXTREMITIES: No edema. LABORATORY DATA: No new labs or imaging to review. ASSESSMENT: 1. L1 burst fracture status post mechanical ground level fall. 2. History of advanced metastatic lung cancer. PLAN: Continue to await placement for swing bed. Continue LSO brace per Neurosurgery. Continue DVT prophylaxis with aspirin 81 mg b.i.d. Continue gastritis prophylaxis with famotidine 20 mg p.o. b.i.d. Will give lactulose to help with bowel regimen. This patient was seen, examined, and discussed with Dr. Riley, the attending physician, who agrees with the assessment and plan. Adalgisa Dietz MD PGY1 Job ID: [id number] [facility]
[2019-04-01 12:54] VITALS: TEMP 97.8
[2019-04-01 15:39] VITALS: BP 91/61
[2019-04-01] MEDS ORDERED: Ipratropium Bromide 2.5 ml Neb NEB PRN (16:33)
[2019-04-01] MEDS ORDERED: Naproxen 500 MG TAB PO PRN (16:33)
[2019-04-01] MEDS ORDERED: Megestrol Acetate 800 MG/20 ML UDCUP PO SCH (21:00)
--- NOTE | 2019-04-01 21:38 | DIS ---
DATE OF ADMISSION: 03/30/2019 DATE OF DISCHARGE: 04/01/2019 This is Trudy Ruiz NP dictating a report for Dani Riley DO. ATTENDING: Dani Riley DO CONSULTS: Neurosurgery, Dr. Rodriguez. PROCEDURES: 1. Lumbar spine CT on 03/27/2019, impression, mild vertical height loss burst fracture at L1, with bone demineralization. 2. Lumbar spine MRI on 03/27/2019, burst fracture at the L1 with no significant central canal or neuroforaminal stenosis. Degree of vertebral body height loss at L1 is approximately 20% centrally. DISCHARGE MEDICATIONS: 1. Acetaminophen 650 mg p.o. q.6 hours. 2. Aspirin 81 mg b.i.d. 3. Flexeril 10 mg three times a day p.r.n. for muscle spasms. 4. Lactulose as needed. 5. Megestrol 40 mg p.o. b.i.d. 6. Naproxen 220 mg p.o. b.i.d. p.r.n. 7. MiraLAX 17 g p.o. daily as needed. 8. Zoloft 50 mg p.o. daily. 9. Spiriva inhaler as needed. PRIMARY DIAGNOSIS: Mechanical fall, L1 burst fracture. SECONDARY DIAGNOSIS: History of advanced metastatic lung cancer. HISTORY OF PRESENT ILLNESS AND HOSPITAL COURSE: This is a 73-year-old lady who fell at home. There was no reported loss of consciousness. When the patient stood to ambulate without her walker, the patient reported immediate back pain after falling. The patient was found to have a L1 burst fracture. Trauma Services admitted the patient for pain control, Neurosurgery recommended a TLSO brace when out of bed activities. The patient continued to have a diminished appetite during her hospital stay, which is somewhat normal for the patient. The patient had an extended length of stay due to pending placement. DISCHARGE INSTRUCTIONS: 1. Location: Swing bed, [place] for continued physical and occupational therapy. 2. Diet: Regular diet. 3. Activity: As tolerated, TLSO brace when out of bed. 4. Followup: Follow up with Dr. Rodriguez, Neurosurgery as directed. On the day of discharge, the patient was examined with Dr. Riley. The patient's vital signs were stable and the patient's exam was unremarkable including GI and cardiopulmonary. The patient was deemed stable for discharge to swing bed. This is just a summary of the patient's hospital course. Job ID: [id number]
[2019-04-02] MEDS ORDERED: POLYETHYLENE GLYCOL 17 GM PO SCH (09:00)
--- NOTE | 2019-04-03 09:46 | PQF ---
FABIO FRIEDMAN VINCENT U [id number] [facility] 333 [id number] CLINICAL DOCUMENTATION CLARIFICATION FORM: POST DISCHARGE Addendum to original discharge summary date: ____ Late entry note date: __ DATE: 04/03/19 ATTN:Dani Spencer Please exercise your independent, professional judgment in responding to the clarification form. Clinical indicators are provided on the bottom of this form for your review Based on your clinical judgment, can you please specify the etiology of patient' s lumbar fracture? Please check appropriate box(s): [ x] Lumbar fracture due to fall [ ] Lumbar fracture due to bone demineralization [ ] Lumbar fracture due to bone cancer [ ] Other diagnosis please specify [ ] Unable to determine For continuity of documentation, please document condition throughout progress notes and discharge summary. Thank You. CLINICAL INDICATORS - SIGNS / SYMPTOMS / LABS - Consult 03/27 -"CT of the lumbar spine shows an L1 burst fracture" - H&P 03/27 - "fell at home" - H&P 03/27 - "patient had immediate back pain" - H&P 03/27 - "acute pain due to trauma" - DS 04/01 - "burst fracture at L1 with bone demineralization" - DS 04/01 - "patient reported immiediate back pain after falling" RISK FACTORS - Consult 03/27 - 73 years old female - Consult 03/27 - s/p fall - Consult 03/27 - lung cancer - Consult 03/27 - secondary bone cancer TREATMENTS: - Lumbar CT/MRI - Collected 03/27 - LSO brace - Consult 03/27 - Acetaminophen 650mg Oral - DS 04/01 - Flexeril 10mg Oral - DS 04/01 - PT theraphy - DS 04/01 (This form is maintained as a part of the permanent medical record) 2014 [employer]. All Rights Reserved [email or web address] [not provided] MTDD
== END 2019-04-01 17:50 | DRG 552 ==
LOC: ERS 07:03 → SURG A 14:51 → OBSVTOIN 03-30 10:58
PROVIDERS: ADMIT Surgery; ATTEND Surgery
DX: S32.011A Stable burst fracture of first lumbar vertebra, initial encounter for closed fracture (principal); E27.40 Unspecified adrenocortical insufficiency; C34.90 Malignant neoplasm of unspecified part of unspecified bronchus or lung; C79.51 Secondary malignant neoplasm of bone; W18.30XA Fall on same level, unspecified, initial encounter; J44.9 Chronic obstructive pulmonary disease, unspecified; Z60.2 Problems related to living alone; Z53.29 Procedure and treatment not carried out because of patient's decision for other reasons; F32.9 Major depressive disorder, single episode, unspecified; Z90.710 Acquired absence of both cervix and uterus; Z90.49 Acquired absence of other specified parts of digestive tract; Z87.891 Personal history of nicotine dependence; Z88.5 Allergy status to narcotic agent; Z79.899 Other long term (current) drug therapy; Z51.81 Encounter for therapeutic drug level monitoring; K21.9 Gastro-esophageal reflux disease without esophagitis; F03.90 Unspecified dementia, unspecified severity, without behavioral disturbance, psychotic disturbance, mood disturbance, and anxiety; Z66 Do not resuscitate
CPT/HCPCS: 36415; 51701; 72131; 72148; 80048; 80053; 81003; 82533; 85025; 85610; 85730; 93005; 96361; 96374; 96375; 96376; A4353; G0390; J0131; J1720; J1885; J2270; J2405; J7512; Q0167